=== PATIENT | female | born 1960 | race Caucasian/White ===

== ENCOUNTER 2016-10-27 08:04 | Emergency (ER) | payer OTHER ==
[2016-10-27] MEDS ORDERED: ASPIRIN CHEW 81 MG TABLET PO STA (08:19)
[2016-10-27] MEDS ORDERED: MORPHINE 2 MG/ML SYRINGE IVP STA ×2 (08:19→09:35)
[2016-10-27] MEDS ORDERED: NITROGLYCERIN SL 0.4 MG TABLET SL STA (08:19)
[2016-10-27] MEDS ORDERED: SODIUM CHLORIDE 0.9% 1,000 ML IV ONE (08:19)
[2016-10-27] MEDS ORDERED: ONDANSETRON 4 MG/2 ML VIAL IVP STA (08:20)
[2016-10-27] MEDS ORDERED: ASPIRIN CHEW 81 MG TABLET ONE (08:33)
[2016-10-27] MEDS ORDERED: MORPHINE 2 MG/ML SYRINGE ONE ×2 (08:33→09:40)
[2016-10-27] MEDS ORDERED: ONDANSETRON 4 MG/2 ML VIAL ONE (08:33)
[2016-10-27] MEDS ORDERED: NITROGLYCERIN SL 0.4 MG TABLET SL ONE (08:33)
[2016-10-27] MEDS ORDERED: IOPAMIDOL-300 100 ML VIAL IVP ONE (09:57)
[2016-10-27] MEDS ORDERED: AZITHROMYCIN 250 MG TABLET PO ONE (13:40)
== END 2016-10-27 13:56 | disposition home or self-care (01) ==
DX: I30.9 Acute pericarditis, unspecified (principal); J18.9 Pneumonia, unspecified organism; R00.0 Tachycardia, unspecified; R91.8 Other nonspecific abnormal finding of lung field; N28.89 Other specified disorders of kidney and ureter; I10 Essential (primary) hypertension; M06.9 Rheumatoid arthritis, unspecified; F17.200 Nicotine dependence, unspecified, uncomplicated
CPT/HCPCS: 36415; 71010; 71275; 80053; 83690; 84484; 85025; 85379; 93005; 93010; 93306; 96374; 96375; 96376; 99284; A9270; Q9967

== ENCOUNTER 2017-01-10 04:56 | Emergency (ER) | payer OTHER ==
[2017-01-10] MEDS ORDERED: HYDROmorphone 1 MG/ML SYRINGE IVP STA (05:37)
[2017-01-10] MEDS ORDERED: KETOROLAC 60 MG/2 ML VIAL IVP STA (05:37)
[2017-01-10] MEDS ORDERED: DEXAMETHASONE 10 MG/ML VIAL IVP STA (05:39)
[2017-01-10] MEDS ORDERED: ONDANSETRON 4 MG/2 ML VIAL IVP STA (05:39)
[2017-01-10] MEDS ORDERED: DEXAMETHASONE 10 MG/ML VIAL ONE (05:40)
[2017-01-10] MEDS ORDERED: HYDROmorphone 1 MG/ML SYRINGE ONE (05:40)
[2017-01-10] MEDS ORDERED: KETOROLAC 30 MG/ML VIAL ONE (05:40)
[2017-01-10] MEDS ORDERED: ONDANSETRON 4 MG/2 ML VIAL ONE (05:40)
== END 2017-01-10 07:05 | disposition home or self-care (01) ==
DX: J06.9 Acute upper respiratory infection, unspecified (principal); R07.81 Pleurodynia; M06.9 Rheumatoid arthritis, unspecified; I10 Essential (primary) hypertension; F17.200 Nicotine dependence, unspecified, uncomplicated
CPT/HCPCS: 36415; 71020; 80053; 83690; 84484; 87275; 87276; 93005; 93010; 96374; 96375; 99283; 99284; J1170

== ENCOUNTER 2019-06-26 11:16 | Inpatient (IN) | payer OTHER ==
[2019-06-26] MEDS ORDERED: AMOX/CLAV 875 MG/125 MG TABLET PO STA (11:49)
[2019-06-26] MEDS ORDERED: SULFAMETH/TRIMETH DS 800/160 MG TABLET PO STA (11:49)
--- NOTE | 2019-06-26 11:57 | ED Physician Documentation ---
History of Present Illness - Stated complaint Stated Complaint: SWOLLEN TOE - Chief complaint Chief Complaint: Ext Problem - History obtained from History obtained from: Patient, Family - History of Present Illness Pain level max: 5 Pain level now: 4 - Additonal information Additional information: Left second toe redness and swelling. Ongoing for the past several months. Comes and goes. Worsening over the past few days, purulent material drained from the toe this morning. She is on Remicade for rheumatoid arthritis. Denies any history of diabetes. She spends part of her time here in part of her time outside of [place]. No fevers. No trauma. Review of Systems Ten Systems: 10 systems reviewed and negative Constitutional: denies: Fever, Chills GI: denies: Vomiting, Diarrhea Skin: denies: Rash Musculoskeletal: denies: Neck pain, Back pain Neurologic: denies: Headache PD PAST MEDICAL HISTORY - Past Medical History Cardiovascular: Hypertension, High cholesterol Musculoskeletal: Rheumatoid arthritis - Past Surgical History Past Surgical History: Yes /EARLY YEARS [employer]ER: Breast implants - Present Medications Home Medications: Ambulatory Orders Medication Instructions Recorded Confirmed Atorvastatin [Lipitor] 20 mg ORAL DAILY 10/27/16 06/26/19 Infliximab-Abda [Renflexis] 500 mg IV .Q8W 10/27/16 06/26/19 Meloxicam 7.5 mg PO BID 10/27/16 06/26/19 Ascorbic Acid 500 mg PO DAILY 06/26/19 06/26/19 Calcium Carbonate 500 mg PO DAILY 06/26/19 06/26/19 Cholecalciferol (Vitamin D3) 1,000 unit PO DAILY 06/26/19 06/26/19 [Vitamin D3] Colchicine [Colcrys] 0.6 mg PO BID 06/26/19 06/26/19 Cyanocobalamin (Vitamin B-12) 500 mcg PO DAILY 06/26/19 06/26/19 [Vitamin B-12 (500 mcg sublingual)] Gabapentin [Neurontin] 300 mg PO QPM 06/26/19 06/26/19 Ibuprofen [Motrin] 400 mg PO Q8H PRN 06/26/19 06/26/19 Leflunomide 20 mg PO DAILY 06/26/19 06/26/19 Metoprolol Tartrate 50 mg PO BID 06/26/19 06/26/19 Multivitamin [Theragran] 1 each PO DAILY 06/26/19 06/26/19 Nortriptyline HCl [Pamelor] 50 mg PO QPM 06/26/19 06/26/19 Varenicline Tartrate [Chantix] 1 mg PO BID 06/26/19 06/26/19 predniSONE [Prednisone] 5 - 20 mg PO DAILY PRN 06/26/19 06/26/19 - Allergies Allergies/Adverse Reactions: Allergies Allergy/AdvReac Type Severity Reaction Status Date / Time prils Allergy Unknown Uncoded 06/26/19 11:29 - Social History Does the pt smoke?: Yes Smoking Status: Current every day smoker Does the pt drink ETOH?: Yes Does the pt have substance abuse?: No - Immunizations Immunizations are current?: Yes PD ED PE NORMAL - Vitals Vital signs reviewed: Yes - General General: Alert and oriented X 3, No acute distress - HEENT HEENT: Moist mucous membranes - Neck Neck: Supple, no meningeal sign - Cardiac Cardiac: RRR - Respiratory Respiratory: No respiratory distress, Clear bilaterally - Abdomen Abdomen: Soft, Non tender, Non distended - Derm Derm: Warm and dry - Extremities Extremities: Other (L 2nd toe - Swelling and erythema to the left second toe. Small amount of purulent drainage from the tip of the toe. There is mild swelling and erythema to the dorsum of the foot as well. No gross deformity. Brisk cap refill. Neurovascular intact) - Neuro Neuro: Alert and oriented X 3 - Psych Psych: Normal mood, Normal affect Results - Vitals Vitals: Vital Signs - 24 hr 06/26/19 11:27 Temperature 36.7 C Heart Rate 77 Respiratory 18 Rate Blood Pressure 125/81 H O2 Saturation 96 Oxygen O2 Source Room air - Labs Labs: Microbiology 06/26/19 11:40 Wound Culture - Preliminary Abscess Laboratory Tests 06/26/19 06/26/19 06/26/19 12:00 12:00 12:00 WBC 9.6 RBC 4.75 Hgb 14.2 Hct 44.2 MCV 93.1 MCH 29.9 MCHC 32.1 RDW 13.7 Plt Count 261 MPV 10.0 Neut # (Auto) 5.9 Lymph # (Auto) 2.5 [place] # (Auto) 0.8 Eos # (Auto) 0.3 Baso # (Auto) 0.0 Absolute Nucleated RBC 0.00 Nucleated RBC % 0.0 ESR 27 Sodium 141 Potassium 2.7 L Chloride 96 L Carbon Dioxide 30 Anion Gap 15.0 H BUN 17 Creatinine 1.1 H Estimated GFR (MDRD) 51 L Glucose 101 H Calcium 9.2 Total Bilirubin Direct Bilirubin AST ALT Alkaline Phosphatase C-Reactive Protein 4.9 H Total Protein Albumin Globulin 06/26/19 12:00 WBC RBC Hgb Hct MCV MCH MCHC RDW Plt Count MPV Neut # (Auto) Lymph # (Auto) [place] # (Auto) Eos # (Auto) Baso # (Auto) Absolute Nucleated RBC Nucleated RBC % ESR Sodium Potassium Chloride Carbon Dioxide Anion Gap BUN Creatinine Estimated GFR (MDRD) Glucose Calcium Total Bilirubin 0.4 Direct Bilirubin 0.2 AST 33 ALT 31 Alkaline Phosphatase 73 C-Reactive Protein Total Protein 7.0 Albumin 3.3 Globulin 3.7 - Rads (name of study) L foot xray Radiology: Prelim report reviewed, EMP read contemporaneously, See rad report (Findings consistent with osteomyelitis involving the second toe) PD MEDICAL DECISION MAKING - ED course Complexity details: reviewed results, re-evaluated patient, considered differential, d/w patient, d/w family, d/w warehouse consultant ED course: 58-year-old female with osteomyelitis of the left second toe. Purulent drainage was present from the toe. This was cultured. Placed on antibiotics. Will admit for IV antibiotics and possible amputation. Discussed the case with Dr. Stacy, orthopedics who asked that she be admitted to the hospitalist service. She was admitted to Dr. Slaughter, the hospitalist who graciously accepts in transfer. Potassium was also replaced. This document was made in part using voice recognition software. While efforts are made to proofread this document, sound alike and grammatical errors may occur. Departure - Departure Disposition: [address] [facility] DC/Xfer Clinical Impression: Hypokalemia Osteomyelitis Qualifiers: Osteomyelitis type: unspecified type Osteomyelitis location: foot Laterality: left Qualified Code(s): M86.9 - Osteomyelitis, unspecified Condition: Stable Discharge Date/Time: 06/26/19 15:32
[2019-06-26 12:07] LABS: BASOPHILS % (AUTO) 0.4 %; EOSINOPHILS # (AUTO) 0.3 10^3/uL (0.0-0.7); HGB - HEMOGLOBIN 14.2 g/dL (12.0-16.0); LYMPHOCYTES # (AUTO) 2.5 10^3/uL (1.5-3.5); LYMPHOCYTES % (AUTO) 25.7 %; MEAN CORPUSCULAR HEMOGLOBIN 29.9 pg (27.0-31.0); MEAN CORPUSCULAR HGB CONC 32.1 g/dL (32.0-36.0); MEAN CORPUSCULAR VOLUME 93.1 fL (81.0-99.0); MONOCYTES # (AUTO) 0.8 10^3/uL (0.0-1.0); MONOCYTES % (AUTO) 8.8 %; NEUTROPHILS # (AUTO) 5.9 10^3/uL (1.5-6.6); NEUTROPHILS % (AUTO) 61.8 %; PLT - PLATELET COUNT 261 10^3/uL (130-450); RED BLOOD COUNT 4.75 10^6/uL (4.20-5.40); RED CELL DISTRIBUTION WIDTH 13.7 % (12.0-15.0); WHITE BLOOD COUNT 9.6 x10^3/uL (4.8-10.8)
[2019-06-26 12:24] LABS: CALCIUM 9.2 mg/dL (8.5-10.3); CREATININE 1.1 mg/dL (0.4-1.0); CRP - C-REACTIVE PROTEIN 4.9 mg/dL (0-1.0)
[2019-06-26] MEDS ORDERED: POTASSIUM CHLORIDE 20 MEQ TABLET PO STA (12:26)
--- NOTE | 2019-06-26 12:36 | XRAY Report ---
Reason: L 2nd toe infected for 2 months Procedure Date: 06/26/2019 Accession Number: [id number] / [id number] Procedure: XR - Foot 3 View LT CPT Code: FULL RESULT: EXAM: LEFT FOOT RADIOGRAPHY EXAM DATE: 06/26/2019 12:10 PM. CLINICAL HISTORY: Left 2nd toe infected for 2 months. COMPARISON: None. TECHNIQUE: 3 views. FINDINGS: Bones: There is near total bone lysis involving the second distal phalanx. Some focal bone loss is also seen along the lateral margin of the second middle phalanx. No discrete bone lysis detected of the second proximal phalanx. Severe arthritic changes are indicated at the first metatarsophalangeal articulation, with effacement of the joint space, focal erosions along the margin of the articulation, and subchondral cystic changes. Chronic-appearing diminution of the head of the third metatarsal, without focal bone lysis detected. Evidence of healed fracture of the distal diaphysis of the fifth metatarsal. Joints: Normal. No subluxations. Soft Tissues: Significant soft tissue swelling is seen of the second toe. No subcutaneous radiopaque foreign bodies. IMPRESSION: Findings consistent with osteomyelitis involving the second toe. RADIA
[2019-06-26] MEDS ORDERED: VANCOMYCIN INJ 1 GM in SODIUM CHLORIDE 0.9% 500 ML IV STA (12:47)
[2019-06-26] MEDS ORDERED: PIPERACILLIN/TAZOBACTAM 4.5 GM in SODIUM CHLORIDE 0.9% MINIBAG 100 ML IV STA (12:47)
[2019-06-26] MEDS ORDERED: SODIUM CHLORIDE 0.9% 1,000 ML IV ONE (12:49)
[2019-06-26] MEDS ORDERED: ACETAMINOPHEN 325 MG TABLET PO PRN (12:58)
[2019-06-26 13:26] LABS: ALBUMIN 3.3 g/dL (3.2-5.5); BILIRUBIN,DIRECT 0.2 mg/dL (0.1-0.5); BILIRUBIN,TOTAL 0.4 mg/dL (0.2-1.0)
[2019-06-26] MEDS ORDERED: MORPHINE 2 MG/ML CARPUJECT IVP STA (14:03)
--- NOTE | 2019-06-26 14:05 | XRAY Report ---
Reason: pre-op eval Procedure Date: 06/26/2019 Accession Number: [id number] / [id number] Procedure: XR - Chest 1 View X-Ray CPT Code: 36208 FULL RESULT: EXAM: CHEST RADIOGRAPHY EXAM DATE: 06/26/2019 01:55 PM. CLINICAL HISTORY: Pre-op evaluation. COMPARISON: CHEST 2 VIEW PA/LAT 01/10/2017 5:59 AM. TECHNIQUE: 1 view. FINDINGS: Lungs/Pleura: No focal opacities evident. No pleural effusion. No pneumothorax. Mediastinum: Within exam limitations, the cardiomediastinal contour is normal. Other: Stable moderate rightward thoracic scoliosis. IMPRESSION: No lung consolidations identified. RADIA
[2019-06-26] MEDS ORDERED: LACTATED RINGERS 1,000 ML IV SCH ×2 (16:00→17:54)
[2019-06-26] MEDS ORDERED: fentaNYL 100 MCG/2 ML VIAL IVP ONE (16:39)
[2019-06-26] MEDS ORDERED: PROPOFOL 200 MG/20 ML VIAL IVP ONE (16:39)
[2019-06-26] MEDS ORDERED: MIDAZOLAM 2 MG/2 ML VIAL IVP ONE (16:39)
[2019-06-26] MEDS ORDERED: KETAMINE 500 MG/10 ML VIAL IVP ONE (16:39)
[2019-06-26] MEDS ORDERED: LIDOCAINE-MPF 2% 5 ML VIAL IM ONE (16:39)
[2019-06-26] MEDS: HYDROmorphone 1 MG/ML CARPUJECT IVP PRN (16:40)
[2019-06-26] MEDS: SODIUM CHLORIDE FLUSH 0.9% 10 ML SYRINGE IVP SCH (16:40)
[2019-06-26] MEDS ORDERED: PROCHLORPERAZINE 10 MG/2 ML VIAL IVP PRN (17:58)
[2019-06-26] MEDS: PIPERACILLIN/TAZOBACTAM 3.375 GM in SODIUM CHLORIDE 0.9% MINIBAG 100 ML IV SCH (18:55)
--- NOTE | 2019-06-26 19:57 | HISTORY & PHYSICAL EXAMINATION ---
DATE OF SERVICE: 06/26/2019 Physician: Tatianna Shen MD HISTORY OF PRESENT ILLNESS: This is a 58-year-old white female with a history of smoking, trying to quit and using Chantix now, history of rheumatoid arthritis, for which she takes Remicade and other immunosuppressants and occasionally takes Prednisone for a flare-up, the last of which was about one month ago. The patient developed swelling of her right second toe after wearing a certain shoe, which got better but then got worse, and she started soaking it in Epsom salt soaks. This morning, it opened up and started to drain purulent material, and she came to the emergency room. Workup in the ER shows that she has osteo by imaging, and she is being admitted. PAST MEDICAL HISTORY 1. Rheumatoid arthritis. 2. Smoker, who is trying to quit. 3. HTN ALLERGIES: ENALAPRIL MEDICATIONS. MEDICATIONS 1. Vitamin B12. 2. Vitamin D3. 3. Multivitamin. 4. Vitamin C. 5. Nortriptyline 50 mg every night. 6. Neurontin 300 mg every night. 7. Prednisone 5 -20 mg daily when she has a flare-up of her RA. 8. Chantix 1 mg b.i.d. 9. Meloxicam 7.5 mg b.i.d. 10. Renflexis 500 mg every 2 months. 11. Lipitor 20 mg daily. 12. Motrin 400 mg p.r.n. pain. 13. Metoprolol tartrate 50 mg b.i.d. 14. Leflunomide 20 mg daily. FAMILY HISTORY: No inherited diseases. SOCIAL HISTORY: Smoker, who is trying to quit; alcohol use and drug use are negative. REVIEW OF SYSTEMS: She has had no fever. She has never had a serious infection on her immunosuppressants in the past. A comprehensive review of systems was performed and the pertinent positives are listed; the rest are negative. PHYSICAL EXAMINATION GENERAL: Middle-aged white female. She has a hoarse voice. VITAL SIGNS: Blood pressure 125/80, heart rate 75 in sinus rhythm, afebrile, room air saturation 96%. HEENT: Reveals tanned, leathery skin, hoarse voice. Moist oral mucosa. Good dentition. NECK: Without JVD or carotid bruits. CHEST: Clear. HEART: Normal. ABDOMEN: Soft. EXTREMITIES: The right toes are bandaged. She has no clubbing, cyanosis or edema. NEURO: Grossly intact. LABORATORY DATA: Sodium 141, potassium 2.7, BUN 17, creatinine 1.1, anion gap mildly elevated at 15. No lactic acid was done. Normal liver tests. Elevated CRP of 4.9. INR normal at 0.9. White blood count 9.6 with no left shift, hemoglobin 14.2, platelet count 261. The wound culture was sent from a swab done in the ER just a few hours ago, and it is already growing moderate gram-positive cocci in clusters and pairs. CHEST X-RAY: No active disease. EKG: Normal sinus rhythm, left atrial enlargement, otherwise within normal limits. Foot x-ray: read as having significant soft tissue swelling of the second toe and severe arthritic changes and near total bone lysis involving the second distal phalanx consistent with osteomyelitis. IMPRESSION/DIAGNOSES 1. Osteomyelitis. 2. Toe cellulitis with wound that has now opened and draining pus. 3. Hypokalemia. 4. Immunocompromised state. 5. Rheumatoid arthritis. 6. Smoker, who is now quitting. PLAN 1. Admit the patient to med/surg bed on telemetry because of the low potassium. 2. Continue with empiric treatment that was started in the ER using vancomycin and Zosyn and await the culture results and tailor the antibiotics to that. If she spikes a fever, obtain blood cultures. 3. Orthopedic consult for debridement of the osteo, and the orthopedic surgeon has indicated he wants 1-3 days of IV antibiotics before undertaking surgery. Recommend checking a lactic acid level. 4. Begin gentle IV hydration and replace her potassium. 5. Cardiac risk index was done for pre-op risk assessment, and she has a low risk with a score of 0, giving her 0.4% chance of perioperative major cardiac event. This was discussed with the patient. 6. Continue her Chantix and BP meds. DEEP VENOUS THROMBOSIS PROPHYLAXIS: SCDs. CODE STATUS: FULL CODE. ATTESTATION: The patient is expected to be discharged or transferred to another facility within 96 hours: Yes. TD: 06/26/2019 19:00 LATHA
--- NOTE | 2019-06-26 20:22 | CONSULTATION NOTE ---
DATE OF SERVICE: 06/26/2019 Physician: Mal Stacy MD ORTHOPEDIC EMERGENCY ROOM CONSULT REFERRING PHYSICIAN: Dr. Sandeep Duong of the ED Department. CHIEF COMPLAINT: "My left second toe is sore." HISTORY OF PRESENT ILLNESS: Maya Acuna is a 58-year-old female with a history of rheumat oid arthritis, on 3-month infusions with immunosuppressive drugs in [place], who is currently visi ting relatives here on [facility]. It is anticipated that she will relocate to [facility] in the future. Her next scheduled infusion is in late June. Patient relates to us that over the last several months (2 months), she has noted intermittent redness and swelling to her left second to e. She denies any preceding trauma to the toe and has had intermittent pain. No associated fever. Several days ago, she noted some spontaneous drainage from the tip of her toe, which was purulent in nature. She has also noted increasing pain in her toe. She had not sought medical attention prior t o today with regard to the toe. EXAMINATION: Patient's left foot was examined. She has some mild deformity of her forefoot, likely due to her rheumatoid arthritis. Her left second toe is markedly swollen and erythematous today. It is somewhat tender on palpation. Patient has a small puncture site at the tip of her second toe, wh ere apparently some purulent drainage was expressible in the emergency room. Minimal drainage noted here. (A sample of the drainage from her toe apparently was collected in the emergency room and was sent to Microbiology for cultures and sensitivities.) Patient has intact sensation to light touch of her toe. No evidence of any lymphangitis noted. IMAGING: X-rays of the left foot show essentially a complete destructive process involving principal ly the distal phalanx of the second toe. The phalanx is essentially obliterated. She also has some lytic changes seen in the distal end of the middle phalanx of the second toe as well. White count was 9,600 with a sedimentation rate of 27. ASSESSMENT 1. Osteomyelitis of the second toe of the left foot - patient's history is consistent with this, and radiographically, she has complete lytic destruction of the distal phalanx and a portion of the dist al end of the middle phalanx of her left second toe. Patient is a candidate for infections in lieu o f her pharmaceutical IV infusion medications in [place] for treatment of her rheumatoid arthritis. 2. Rheumatoid arthritis. PLAN: Patient has a rather inflamed left second toe. I have recommended that she be started on IV b road-spectrum antibiotics and allow the cellulitic component of her left second toe to improve over t he next 36 hours. We will plan then on performing a partial left second toe amputation, Saturday tita harrell at 8:00, when some of the cellulitis has resolved. Patient's diagnosis and surgical options were explained to her today. This would include either retu rning back to [place] and having her local orthopedist do her surgery and follow her postoperative ly versus having us proceed and do the same here. She opts to have us take care of her surgical ampu tation of her toe. The risks and benefits of surgery were again explained. These would include anes thesia risks, prolonged infection, delayed wound healing, further surgeries. She appears to understa nd these risks and wished to proceed as noted. Her leg was marked. Consent signed. TD: 06/26/2019 18:19
[2019-06-26] MEDS: NORTRIPTYLINE 25 MG CAPSULE PO SCH (20:53)
[2019-06-26] MEDS: METOPROLOL TARTRATE 50 MG TABLET PO SCH (20:53)
[2019-06-26] MEDS: FAMOTIDINE 20 MG TABLET PO SCH (20:54)
[2019-06-26] MEDS: HYDROcod/ACETAM 5/325 MG TABLET PO PRN (20:54)
[2019-06-26] MEDS: POTASSIUM CHLOR 10 MEQ/100 ML 10 MEQ/100 ML BAG IV SCH ×2 (20:55→23:05)
[2019-06-26] MEDS: GABAPENTIN 300 MG CAPSULE PO SCH (20:55)
[2019-06-26] MEDS ORDERED: POTASSIUM CHLORIDE 20 MEQ TABLET PO ONE (21:45)
[2019-06-27] MEDS: HYDROcod/ACETAM 5/325 MG TABLET PO PRN ×5 (00:30→20:24)
[2019-06-27] MEDS: PIPERACILLIN/TAZOBACTAM 3.375 GM in SODIUM CHLORIDE 0.9% MINIBAG 100 ML IV SCH ×4 (00:59→17:50)
[2019-06-27] MEDS: SODIUM CHLORIDE FLUSH 0.9% 10 ML SYRINGE IVP SCH ×3 (01:01→20:24)
[2019-06-27] MEDS: VANCOMYCIN INJ 1 GM in SODIUM CHLORIDE 0.9% 250 ML IV SCH ×2 (02:48→12:59)
[2019-06-27 05:47] LABS: BASOPHILS # (AUTO) 0.1 10^3/uL (0.0-0.1); BASOPHILS % (AUTO) 0.8 %; EOSINOPHILS # (AUTO) 0.4 10^3/uL (0.0-0.7); EOSINOPHILS % (AUTO) 5.5 %; HGB - HEMOGLOBIN 11.8 g/dL (12.0-16.0); LYMPHOCYTES # (AUTO) 2.8 10^3/uL (1.5-3.5); LYMPHOCYTES % (AUTO) 41.9 %; MEAN CORPUSCULAR HEMOGLOBIN 30.2 pg (27.0-31.0); MEAN CORPUSCULAR HGB CONC 31.9 g/dL (32.0-36.0); MEAN CORPUSCULAR VOLUME 94.6 fL (81.0-99.0); MEAN PLATELET VOLUME 9.8 fL (7.9-10.8); MONOCYTES # (AUTO) 0.6 10^3/uL (0.0-1.0); MONOCYTES % (AUTO) 8.5 %; NEUTROPHILS # (AUTO) 2.8 10^3/uL (1.5-6.6); NEUTROPHILS % (AUTO) 43.1 %; PLT - PLATELET COUNT 229 10^3/uL (130-450); RED BLOOD COUNT 3.91 10^6/uL (4.20-5.40); RED CELL DISTRIBUTION WIDTH 13.7 % (12.0-15.0); WHITE BLOOD COUNT 6.6 x10^3/uL (4.8-10.8)
[2019-06-27 05:55] LABS: CALCIUM 8.7 mg/dL (8.5-10.3); CREATININE 1.1 mg/dL (0.4-1.0)
[2019-06-27] MEDS ORDERED: POTASSIUM CHLORIDE 20 MEQ TABLET PO ONE (06:17)
[2019-06-27] MEDS ORDERED: POTASSIUM CHLORIDE INJ 40 MEQ in SODIUM CHLORIDE 0.9% 480 ML IV ONE (06:17)
[2019-06-27] MEDS: POLYETHYLENE GLYCOL 3350 17 GM PACKET PO SCH (08:28)
[2019-06-27] MEDS: CHOLECALCIFEROL 1,000 UNIT TABLET PO SCH (08:29)
[2019-06-27] MEDS: CYANOCOBALAMIN 500 MCG TABLET PO SCH (08:30)
[2019-06-27] MEDS: ASCORBIC ACID CHEW 500 MG TABLET PO SCH (08:30)
[2019-06-27] MEDS: CALCIUM CARB (OYSTER SHELL) 500 MG TABLET PO SCH (08:30)
[2019-06-27] MEDS: MULTIVITAMIN TABLET PO SCH (08:30)
[2019-06-27] MEDS: METOPROLOL TARTRATE 50 MG TABLET PO SCH ×2 (08:30→21:14)
--- NOTE | 2019-06-27 08:48 | PROVIDER PROGRESS NOTE ---
Assessment/Plan - Problem List (1) Osteomyelitis Qualifiers: Osteomyelitis type: unspecified type Osteomyelitis location: foot Laterality: left Qualified Code(s): M86.9 - Osteomyelitis, unspecified Assessment/Plan: She started antibiotics yesterday afternoon. She is still needing iv narcotics for pain control. Dr Stacy saw her today and is still planning orthopedic surgery tomorrow a.m. Duration of treatment will depend on amount of bone and soft tissue removed at surgery tomorrow. (2) Bone destruction Assessment/Plan: The XRay showed bone lysis. Orthopedic surgery is scheduled for tomorrow. Duration of treatment will depend on amount of bone and soft tissue removed at surgery tomorrow. (3) Cellulitis and abscess of toe Qualifiers: Laterality: left Qualified Code(s): L03.032 - Cellulitis of left toe; L02.612 - Cutaneous abscess of left foot Assessment/Plan: Continue iv antibiotics. Awaiting wound culture results; it is growing a Staph species, not yet identified. Duration of treatment will depend on amount of bone and soft tissue removed at surgery tomorrow. (4) Immunocompromised patient Assessment/Plan: She has been on immunosuppressants for her Rheumatoid Arthritis, which predisposed her to infections. (5) Rheumatoid arthritis Assessment/Plan: No current flare ups of RA of her joints, to need Prednisone. She reports 3 prior episodes of pericarditis which needed treatment with Colchicine, which she is now on continuously. She was told to use it bid but that caused diarrhea so she takes it once a day. I will order it daily. (6) Hypokalemia Assessment/Plan: It is unclear why she has such severe hypokalemia; was not on K-losing diuretics, or Flurinef. Possibly the frequent Prednisone was acting as a mineralocorticoid for her. Or maybe she has Hyperaldosteronism to give her HTN and chronic Hypokalemia. Replaceing low serum K of 2.7 with iv K 40 mEq today and will start daily oral Potassium 20 mEq daily. Follow serum K bid til stabilized. Will order labs to check plasma renin activity and plasma aldosterone concentration. If these are abnormal, she will need a CT of the sdrenals to look for an adrenal tumor or bilateral adrenal hyperplasia. She remembered she was on HCTZ daily for BP, which was not written on her med list, so it was not reconciled. She took her own dose from her purse today. I told her not to take it any longer, since she will need hydration, not a diuretic and it is adding to low Potassium. (7) HTN (hypertension) Assessment/Plan: She was on HCTZ and Metoprolol for BP control. Will not use the HCTZ, since it is adding to secerly low serum Potassium. Continue her home dose of Metoprolol Tartrate. She may need Amlodipine or Norvasc started. - Current Meds Current Meds: Current Medications Generic Name Dose Route Start Last Admin Trade Name Freq PRN Reason Stop Dose Admin Hydrocodone Bitart/Acetaminophen 1 tab 06/26/19 12:58 06/27/19 06:58 [place] 5/325 PO 1 tab Q4HR PRN Administration Pain 5 to 7 Ascorbic Acid 500 mg 06/27/19 09:00 06/27/19 08:30 Vitamin C PO 500 mg DAILY ONUR Administration Calcium Carbonate/Glycine 500 mg 06/27/19 09:00 06/27/19 08:30 [place]-500 PO 500 mg DAILY ONUR Administration Cholecalciferol 1,000 unit 06/27/19 09:00 06/27/19 08:29 Vitamin D3 PO 1,000 unit DAILY ONUR Administration Cyanocobalamin 500 mcg 06/27/19 09:00 06/27/19 08:30 Vitamin B-12 PO 500 mcg DAILY ONUR Administration Famotidine 20 mg 06/26/19 21:00 06/26/19 20:54 Pepcid PO 20 mg BID ONUR Administration Gabapentin 300 mg 06/26/19 21:00 06/26/19 20:55 Neurontin PO 300 mg QPM ONUR Administration Hydromorphone HCl 1 mg 06/26/19 12:58 06/26/19 16:40 Dilaudid Inj Carp IVP 1 mg Q2HR PRN Administration Pain 8 to 10 Vancomycin HCl 1 gm/ Sodium 250 mls @ 167 mls/hr 06/27/19 02:00 06/27/19 07:54 Chloride IV Infused Q12H ONUR Infusion Piperacillin Sod/Tazobactam 100 mls @ 200 mls/hr 06/26/19 18:00 06/27/19 07:53 Sod 3.375 gm/ Sodium Chloride IV Infused Q6H ONUR Infusion Lactated Ringer's 1,000 mls @ 0 mls/hr 06/26/19 17:54 06/26/19 18:56 Lr IV 30 mls/hr .Q0M ONUR Administration TKO Potassium Chloride 40 meq/ 500 mls @ 125 mls/hr 06/27/19 06:17 06/27/19 08:32 Sodium Chloride IV 06/27/19 10:16 125 mls/hr ONCE ONE Administration Metoprolol Tartrate 50 mg 06/26/19 21:00 06/27/19 08:30 Lopressor PO 50 mg BID ONUR Administration Multivitamins 1 tab 06/27/19 09:00 06/27/19 08:30 Theragran PO 1 tab DAILY ONUR Administration Nortriptyline HCl 50 mg 06/26/19 21:00 06/26/19 20:53 Pamelor PO 50 mg QPM ONUR Administration Polyethylene Glycol 17 gm 06/27/19 09:00 06/27/19 08:28 Miralax PO 17 gm DAILY ONUR Administration Sodium Chloride 10 ml 06/26/19 17:00 06/27/19 01:01 Normal Saline Flush 0.9% IVP 10 ml 0100,0900,1700 ONUR Administration - Lab Result Fish Bone Diagrams: 06/27/19 05:38 06/27/19 12:05 - Additional Planning My Orders: My Active Orders 06/26/19 12:58 Activity Orders [RC] Q2HR IO [RC] IOSHIFT Initiate Bowel Care Protocol [RC] .protocol Initiate Line Care Protocol [RC] [facility] Initiate Personal Care Protoco [RC] .protocol Oxygen Therapy [RC] Routine Vital Signs [RC] Q4HR Acetaminophen [Tylenol] 650 mg PO Q4HR PRN HYDROcod/ACETAM 5/325 [[place] 5/325] 1 tab PO Q4HR PRN HYDROmorphone INJ CARP [Dilaudid Inj Carp] 1 mg IVP Q2HR PRN Sodium Chloride Flush 0.9% [Normal Saline Flush 0.9%] 10 ml IVP PRN PRN Code Status [OTHERS] Routine Condition of Patient [OTHERS] Routine DVT Prophylaxis [OTHERS] Routine 06/26/19 13:00 SCDs [RC] QSHIFT 06/26/19 13:01 Initiate Line Care Protocol [RC] QSHIFT Orthopedics Consult [CONS] Routine 06/26/19 17:00 Sodium Chloride Flush 0.9% [Normal Saline Flush 0.9%] 10 ml IVP 0100,0900,1700 06/26/19 17:54 Lactated Ringers [Lr] 1,000 ml IV TKO 06/26/19 17:58 Prochlorperazine Inj [Compazine Inj] 10 mg IVP Q4HR PRN 06/26/19 18:00 Piperacillin/Tazobactam [Zosyn] 3.375 gm Sodium Chloride 0.9% Minibag [Normal Saline 0.9% Minibag] 100 ml IV Q6H 06/26/19 21:00 Famotidine [Pepcid] 20 mg PO BID Gabapentin [Neurontin] 300 mg PO QPM Metoprolol Tartrate [Lopressor] 50 mg PO BID Nortriptyline [Pamelor] 50 mg PO QPM 06/26/19 Dinner Regular Diet [DIET] 06/27/19 02:00 Vancomycin Inj [Vancomycin] 1 gm Sodium Chloride 0.9% [Normal Saline 0.9%] 250 ml IV Q12H 06/27/19 09:00 Ascorbic Acid Chew [Vitamin C] 500 mg PO DAILY Calcium Carb (Oyster Shell) [[place]-500] 500 mg PO DAILY Cholecalciferol [Vitamin D3] 1,000 unit PO DAILY Cyanocobalamin [Vitamin B-12] 500 mcg PO DAILY Multivitamin [Theragran] 1 tab PO DAILY Polyethylene Glycol 3350 [Miralax] 17 gm PO DAILY 06/27/19 21:00 Atorvastatin [Lipitor] 20 mg PO QPM 06/28/19 05:00 BMP - BASIC METABOLIC PANEL [CHEM] DAILYLAB CBC - COMP BLD CT W/AUTO DIFF [HEME] DAILYLAB 06/28/19 08:00 Potassium Chloride [K-Dur] 20 meq PO DAILYWM 06/28/19 13:30 VANCOMYCIN TROUGH [CHEM] Timed 06/29/19 05:00 BMP - BASIC METABOLIC PANEL [CHEM] DAILYLAB CBC - COMP BLD CT W/AUTO DIFF [HEME] DAILYLAB Subjective - Subjective Patient Reports: Feeling Better, Pain, Other (Still has pain in foot and toe) Objective Vital Signs: Vital Signs - 24 hr 06/26/19 06/26/19 06/26/19 11:27 13:05 15:58 Temperature 36.7 C 36.6 C Heart Rate 77 70 Heart Rate [ 70 Monitoring electrodes] Respiratory 18 18 14 Rate Blood Pressure 125/81 H 147/80 H Blood Pressure 126/81 H [Right Brachial artery] O2 Saturation 96 99 93 06/26/19 06/26/19 06/26/19 18:06 20:02 20:53 Temperature 36.6 C 36.6 C Heart Rate 82 Heart Rate [ 73 Monitoring electrodes] Respiratory 14 18 Rate Blood Pressure 147/80 H Blood Pressure 115/67 [Right Brachial artery] O2 Saturation 96 94 06/26/19 06/27/19 06/27/19 23:32 05:00 08:30 Temperature 36.6 C 36.5 C Heart Rate Heart Rate [ 72 73 Monitoring electrodes] Respiratory 16 20 Rate Blood Pressure 111/60 Blood Pressure 111/65 103/70 [Right Brachial artery] O2 Saturation 100 93 06/27/19 08:35 Temperature 3.5 C L Heart Rate Heart Rate [ 75 Monitoring electrodes] Respiratory 18 Rate Blood Pressure Blood Pressure 111/60 [Right Brachial artery] O2 Saturation 93 Oxygen O2 Source Room air I&O (Last 24 Hrs): Intake and Output Totals x24h 06/25/19 06/26/19 06/27/19 23:59 23:59 23:59 Intake Total 1047 450 Balance 1047 450 General: Alert, Oriented x3 HEENT: Other (Hoarseness) Neck: Supple, No JVD Neuro: Non Focal Cardiovascular: Regular rate Respiratory: No respiratory distress Abdomen: Soft Extremities: No edema, Other (Feet in socks and not removed) - Results Results: Laboratory Results WBC 6.6 x10^3/uL (4.8-10.8) 06/27/19 05:38 RBC 3.91 10^6/uL (4.20-5.40) L 06/27/19 05:38 Hgb 11.8 g/dL (12.0-16.0) L 06/27/19 05:38 Hct 37.0 % (37.0-47.0) 06/27/19 05:38 MCV 94.6 fL (81.0-99.0) 06/27/19 05:38 MCH 30.2 pg (27.0-31.0) 06/27/19 05:38 MCHC 31.9 g/dL (32.0-36.0) L 06/27/19 05:38 RDW 13.7 % (12.0-15.0) 06/27/19 05:38 Plt Count 229 10^3/uL (130-450) 06/27/19 05:38 MPV 9.8 fL (7.9-10.8) 06/27/19 05:38 Neut # (Auto) 2.8 10^3/uL (1.5-6.6) 06/27/19 05:38 Lymph # (Auto) 2.8 10^3/uL (1.5-3.5) 06/27/19 05:38 [place] # (Auto) 0.6 10^3/uL (0.0-1.0) 06/27/19 05:38 Eos # (Auto) 0.4 10^3/uL (0.0-0.7) 06/27/19 05:38 Baso # (Auto) 0.1 10^3/uL (0.0-0.1) 06/27/19 05:38 Absolute Nucleated RBC 0.00 x10^3/uL 06/27/19 05:38 Nucleated RBC % 0.0 /100WBC 06/27/19 05:38 ESR 27 mm/Hr (0-30) 06/26/19 12:00 Whole Blood INR 0.9 (0.8-1.2) 06/26/19 13:21 Sodium 140 mmol/L (135-145) 06/27/19 05:38 Potassium 2.7 mmol/L (3.5-5.0) L 06/27/19 05:38 Chloride 103 mmol/L (101-111) 06/27/19 05:38 Carbon Dioxide 29 mmol/L (21-32) 06/27/19 05:38 Anion Gap 8.0 (6-13) 06/27/19 05:38 BUN 16 mg/dL (6-20) 06/27/19 05:38 Creatinine 1.1 mg/dL (0.4-1.0) H 06/27/19 05:38 Estimated GFR (MDRD) 51 (>89) L 06/27/19 05:38 Glucose 153 mg/dL (70-100) H 06/27/19 05:38 Lactic Acid 1.5 mmol/L (0.5-2.2) 06/27/19 05:38 Calcium 8.7 mg/dL (8.5-10.3) 06/27/19 05:38 Total Bilirubin 0.4 mg/dL (0.2-1.0) 06/26/19 12:00 Direct Bilirubin 0.2 mg/dL (0.1-0.5) 06/26/19 12:00 AST 33 IU/L (10-42) 06/26/19 12:00 ALT 31 IU/L (10-60) 06/26/19 12:00 Alkaline Phosphatase 73 IU/L (42-121) 06/26/19 12:00 C-Reactive Protein 4.9 mg/dL (0-1.0) H 06/26/19 12:00 Total Protein 7.0 g/dL (6.7-8.2) 06/26/19 12:00 Albumin 3.3 g/dL (3.2-5.5) 06/26/19 12:00 Globulin 3.7 g/dL (2.1-4.2) 06/26/19 12:00
[2019-06-27] MEDS: MELOXICAM 7.5 MG TABLET PO SCH ×2 (10:25→21:14)
--- NOTE | 2019-06-27 11:10 | PROVIDER PROGRESS NOTE ---
Subjective - Prog Note Date Prog Note Date: 06/27/19 Prog Note Time: 11:08 - Subjective Pt reports feeling: Improved Objective - Vital Signs/Intake & Output Vital Signs: Vital Signs x48h Temp Pulse Resp BP BP Pulse Ox 06/27/19 08:35 3.5 C L 75 18 111/60 93 06/27/19 08:30 111/60 06/27/19 05:00 36.5 C 73 20 103/70 93 Intake & Output: Intake & Output 06/24/19 06/25/19 06/26/19 06/27/19 23:59 23:59 23:59 23:59 Intake Total 1047 650 Balance 1047 650 - Lab Results Fish Bones: 06/27/19 05:38 06/27/19 05:38 Other Labs: Lab Results x24hrs 06/27/19 06/27/19 06/27/19 Range/Units 05:38 05:38 05:38 WBC 6.6 (4.8-10.8) x10^3/uL RBC 3.91 L (4.20-5.40) 10^6/uL Hgb 11.8 L (12.0-16.0) g/dL Hct 37.0 (37.0-47.0) % MCV 94.6 (81.0-99.0) fL MCH 30.2 (27.0-31.0) pg MCHC 31.9 L (32.0-36.0) g/dL RDW 13.7 (12.0-15.0) % Plt Count 229 (130-450) 10^3/uL MPV 9.8 (7.9-10.8) fL Neut # (Auto) 2.8 (1.5-6.6) 10^3/uL Lymph # (Auto) 2.8 (1.5-3.5) 10^3/uL [place] # (Auto) 0.6 (0.0-1.0) 10^3/uL Eos # (Auto) 0.4 (0.0-0.7) 10^3/uL Baso # (Auto) 0.1 (0.0-0.1) 10^3/uL Absolute Nucleated RBC 0.00 x10^3/uL Nucleated RBC % 0.0 /100WBC ESR (0-30) mm/Hr Whole Blood INR (0.8-1.2) Sodium 140 (135-145) mmol/L Potassium 2.7 L (3.5-5.0) mmol/L Chloride 103 (101-111) mmol/L Carbon Dioxide 29 (21-32) mmol/L Anion Gap 8.0 (6-13) BUN 16 (6-20) mg/dL Creatinine 1.1 H (0.4-1.0) mg/dL Estimated GFR (MDRD) 51 L (>89) Glucose 153 H (70-100) mg/dL Lactic Acid 1.5 (0.5-2.2) mmol/L Calcium 8.7 (8.5-10.3) mg/dL Total Bilirubin (0.2-1.0) mg/dL Direct Bilirubin (0.1-0.5) mg/dL AST (10-42) IU/L ALT (10-60) IU/L Alkaline Phosphatase (42-121) IU/L C-Reactive Protein (0-1.0) mg/dL Total Protein (6.7-8.2) g/dL Albumin (3.2-5.5) g/dL Globulin (2.1-4.2) g/dL 06/26/19 06/26/19 06/26/19 Range/Units 19:13 15:01 13:21 WBC (4.8-10.8) x10^3/uL RBC (4.20-5.40) 10^6/uL Hgb (12.0-16.0) g/dL Hct (37.0-47.0) % MCV (81.0-99.0) fL MCH (27.0-31.0) pg MCHC (32.0-36.0) g/dL RDW (12.0-15.0) % Plt Count (130-450) 10^3/uL MPV (7.9-10.8) fL Neut # (Auto) (1.5-6.6) 10^3/uL Lymph # (Auto) (1.5-3.5) 10^3/uL [place] # (Auto) (0.0-1.0) 10^3/uL Eos # (Auto) (0.0-0.7) 10^3/uL Baso # (Auto) (0.0-0.1) 10^3/uL Absolute Nucleated RBC x10^3/uL Nucleated RBC % /100WBC ESR (0-30) mm/Hr Whole Blood INR 0.9 (0.8-1.2) Sodium (135-145) mmol/L Potassium 3.4 L (3.5-5.0) mmol/L Chloride (101-111) mmol/L Carbon Dioxide (21-32) mmol/L Anion Gap (6-13) BUN (6-20) mg/dL Creatinine (0.4-1.0) mg/dL Estimated GFR (MDRD) (>89) Glucose (70-100) mg/dL Lactic Acid 1.0 (0.5-2.2) mmol/L Calcium (8.5-10.3) mg/dL Total Bilirubin (0.2-1.0) mg/dL Direct Bilirubin (0.1-0.5) mg/dL AST (10-42) IU/L ALT (10-60) IU/L Alkaline Phosphatase (42-121) IU/L C-Reactive Protein (0-1.0) mg/dL Total Protein (6.7-8.2) g/dL Albumin (3.2-5.5) g/dL Globulin (2.1-4.2) g/dL 06/26/19 06/26/19 06/26/19 Range/Units 12:00 12:00 12:00 WBC (4.8-10.8) x10^3/uL RBC (4.20-5.40) 10^6/uL Hgb (12.0-16.0) g/dL Hct (37.0-47.0) % MCV (81.0-99.0) fL MCH (27.0-31.0) pg MCHC (32.0-36.0) g/dL RDW (12.0-15.0) % Plt Count (130-450) 10^3/uL MPV (7.9-10.8) fL Neut # (Auto) (1.5-6.6) 10^3/uL Lymph # (Auto) (1.5-3.5) 10^3/uL [place] # (Auto) (0.0-1.0) 10^3/uL Eos # (Auto) (0.0-0.7) 10^3/uL Baso # (Auto) (0.0-0.1) 10^3/uL Absolute Nucleated RBC x10^3/uL Nucleated RBC % /100WBC ESR 27 (0-30) mm/Hr Whole Blood INR (0.8-1.2) Sodium 141 (135-145) mmol/L Potassium 2.7 L (3.5-5.0) mmol/L Chloride 96 L (101-111) mmol/L Carbon Dioxide 30 (21-32) mmol/L Anion Gap 15.0 H (6-13) BUN 17 (6-20) mg/dL Creatinine 1.1 H (0.4-1.0) mg/dL Estimated GFR (MDRD) 51 L (>89) Glucose 101 H (70-100) mg/dL Lactic Acid (0.5-2.2) mmol/L Calcium 9.2 (8.5-10.3) mg/dL Total Bilirubin 0.4 (0.2-1.0) mg/dL Direct Bilirubin 0.2 (0.1-0.5) mg/dL AST 33 (10-42) IU/L ALT 31 (10-60) IU/L Alkaline Phosphatase 73 (42-121) IU/L C-Reactive Protein 4.9 H (0-1.0) mg/dL Total Protein 7.0 (6.7-8.2) g/dL Albumin 3.3 (3.2-5.5) g/dL Globulin 3.7 (2.1-4.2) g/dL 06/26/19 Range/Units 12:00 WBC 9.6 (4.8-10.8) x10^3/uL RBC 4.75 (4.20-5.40) 10^6/uL Hgb 14.2 (12.0-16.0) g/dL Hct 44.2 (37.0-47.0) % MCV 93.1 (81.0-99.0) fL MCH 29.9 (27.0-31.0) pg MCHC 32.1 (32.0-36.0) g/dL RDW 13.7 (12.0-15.0) % Plt Count 261 (130-450) 10^3/uL MPV 10.0 (7.9-10.8) fL Neut # (Auto) 5.9 (1.5-6.6) 10^3/uL Lymph # (Auto) 2.5 (1.5-3.5) 10^3/uL [place] # (Auto) 0.8 (0.0-1.0) 10^3/uL Eos # (Auto) 0.3 (0.0-0.7) 10^3/uL Baso # (Auto) 0.0 (0.0-0.1) 10^3/uL Absolute Nucleated RBC 0.00 x10^3/uL Nucleated RBC % 0.0 /100WBC ESR (0-30) mm/Hr Whole Blood INR (0.8-1.2) Sodium (135-145) mmol/L Potassium (3.5-5.0) mmol/L Chloride (101-111) mmol/L Carbon Dioxide (21-32) mmol/L Anion Gap (6-13) BUN (6-20) mg/dL Creatinine (0.4-1.0) mg/dL Estimated GFR (MDRD) (>89) Glucose (70-100) mg/dL Lactic Acid (0.5-2.2) mmol/L Calcium (8.5-10.3) mg/dL Total Bilirubin (0.2-1.0) mg/dL Direct Bilirubin (0.1-0.5) mg/dL AST (10-42) IU/L ALT (10-60) IU/L Alkaline Phosphatase (42-121) IU/L C-Reactive Protein (0-1.0) mg/dL Total Protein (6.7-8.2) g/dL Albumin (3.2-5.5) g/dL Globulin (2.1-4.2) g/dL - Other Results/Comments Other Results/Comments: EXAM: Left second toe: Less swollen and red. N/V the same. Assessment/Plan - Problem List (1) Osteomyelitis Impression: Cellulitis component appears to be better clinically PLAN: Will proceed as planned with partial left second toe amputation in AM. Qualifiers: Osteomyelitis type: unspecified type Osteomyelitis location: foot Laterality: left Qualified Code(s): M86.9 - Osteomyelitis, unspecified
[2019-06-27 12:20] LABS: CALCIUM 8.9 mg/dL (8.5-10.3); CREATININE 1.2 mg/dL (0.4-1.0)
[2019-06-27] MEDS: LACTATED RINGERS 1,000 ML IV SCH (20:24)
[2019-06-27] MEDS ORDERED: COLCHICINE 0.6 MG TABLET PO SCH (21:00)
[2019-06-27] MEDS: ATORVASTATIN 10 MG TABLET PO SCH (21:13)
[2019-06-27] MEDS: NORTRIPTYLINE 25 MG CAPSULE PO SCH (21:13)
[2019-06-27] MEDS: GABAPENTIN 300 MG CAPSULE PO SCH (21:13)
[2019-06-27] MEDS: FAMOTIDINE 20 MG TABLET PO SCH (21:14)
[2019-06-27] MEDS: VARENICLINE 1 MG PO SCH (21:16)
[2019-06-28] MEDS: HYDROcod/ACETAM 5/325 MG TABLET PO PRN ×6 (00:29→23:45)
[2019-06-28] MEDS: PIPERACILLIN/TAZOBACTAM 3.375 GM in SODIUM CHLORIDE 0.9% MINIBAG 100 ML IV SCH ×3 (00:31→12:29)
[2019-06-28] MEDS: SODIUM CHLORIDE FLUSH 0.9% 10 ML SYRINGE IVP SCH ×4 (02:15→23:46)
[2019-06-28] MEDS: VANCOMYCIN INJ 1 GM in SODIUM CHLORIDE 0.9% 250 ML IV SCH (02:17)
[2019-06-28 05:54] LABS: BASOPHILS # (AUTO) 0.1 10^3/uL (0.0-0.1); BASOPHILS % (AUTO) 0.8 %; EOSINOPHILS # (AUTO) 0.3 10^3/uL (0.0-0.7); EOSINOPHILS % (AUTO) 4.7 %; HGB - HEMOGLOBIN 11.8 g/dL (12.0-16.0); LYMPHOCYTES # (AUTO) 2.8 10^3/uL (1.5-3.5); LYMPHOCYTES % (AUTO) 45.7 %; MEAN CORPUSCULAR HEMOGLOBIN 29.6 pg (27.0-31.0); MEAN CORPUSCULAR HGB CONC 30.8 g/dL (32.0-36.0); MEAN PLATELET VOLUME 10.3 fL (7.9-10.8); MONOCYTES # (AUTO) 0.6 10^3/uL (0.0-1.0); MONOCYTES % (AUTO) 9.8 %; NEUTROPHILS # (AUTO) 2.4 10^3/uL (1.5-6.6); NEUTROPHILS % (AUTO) 38.7 %; PLT - PLATELET COUNT 255 10^3/uL (130-450); RED BLOOD COUNT 3.99 10^6/uL (4.20-5.40); RED CELL DISTRIBUTION WIDTH 13.8 % (12.0-15.0); WHITE BLOOD COUNT 6.1 x10^3/uL (4.8-10.8)
[2019-06-28] MEDS: LACTATED RINGERS 1,000 ML IV SCH (05:59)
[2019-06-28 06:07] LABS: CALCIUM 8.5 mg/dL (8.5-10.3); CREATININE 1.1 mg/dL (0.4-1.0)
[2019-06-28] MEDS ORDERED: POTASSIUM CHLORIDE INJ 40 MEQ in SODIUM CHLORIDE 0.9% 480 ML IV ONE (06:42)
--- NOTE | 2019-06-28 07:38 | PROVIDER PROGRESS NOTE ---
Subjective - Prog Note Date Prog Note Date: 06/28/19 Prog Note Time: 07:37 - Subjective Pt reports feeling: No change Objective - Vital Signs/Intake & Output Vital Signs: Vital Signs x48h Temp Pulse Resp BP Pulse Ox 06/28/19 04:30 36.3 C L 81 20 138/86 H 93 06/28/19 00:21 36.7 C 71 20 118/69 94 Intake & Output: Intake & Output 06/25/19 06/26/19 06/27/19 06/28/19 23:59 23:59 23:59 23:59 Intake Total 1047 2140 2292.333 Balance 1047 2140 2292.333 - Lab Results Fish Bones: 06/28/19 05:38 06/28/19 05:38 Other Labs: Lab Results x24hrs 06/28/19 06/28/19 06/27/19 Range/Units 05:38 05:38 12:05 WBC 6.1 (4.8-10.8) x10^3/uL RBC 3.99 L (4.20-5.40) 10^6/uL Hgb 11.8 L (12.0-16.0) g/dL Hct 38.3 (37.0-47.0) % MCV 96.0 (81.0-99.0) fL MCH 29.6 (27.0-31.0) pg MCHC 30.8 L (32.0-36.0) g/dL RDW 13.8 (12.0-15.0) % Plt Count 255 (130-450) 10^3/uL MPV 10.3 (7.9-10.8) fL Neut # (Auto) 2.4 (1.5-6.6) 10^3/uL Lymph # (Auto) 2.8 (1.5-3.5) 10^3/uL [place] # (Auto) 0.6 (0.0-1.0) 10^3/uL Eos # (Auto) 0.3 (0.0-0.7) 10^3/uL Baso # (Auto) 0.1 (0.0-0.1) 10^3/uL Absolute Nucleated RBC 0.00 x10^3/uL Nucleated RBC % 0.0 /100WBC Sodium 143 141 (135-145) mmol/L Potassium 3.3 L 4.2 (3.5-5.0) mmol/L Chloride 108 102 (101-111) mmol/L Carbon Dioxide 29 31 (21-32) mmol/L Anion Gap 6.0 8.0 (6-13) BUN 13 14 (6-20) mg/dL Creatinine 1.1 H 1.2 H (0.4-1.0) mg/dL Estimated GFR (MDRD) 51 L 46 L (>89) Glucose 102 H 97 (70-100) mg/dL Calcium 8.5 8.9 (8.5-10.3) mg/dL - Other Results/Comments Other Results/Comments: EXAM: Toe is stable clinically Assessment/Plan - Problem List (1) Osteomyelitis Impression: Ready to scheduled surgery PLAN: To OR this AM for partial toe amputation. Qualifiers: Osteomyelitis type: unspecified type Osteomyelitis location: foot Laterality: left Qualified Code(s): M86.9 - Osteomyelitis, unspecified
[2019-06-28] MEDS ORDERED: BUPIVACAINE 0.25% PF 30 ML VIAL ONE (07:45)
--- NOTE | 2019-06-28 07:57 | ANESTHESIA ---
Pre-Anesthesia VS, & Labs - Diagnosis left second toe osteomylitis - Procedure left toe amputation Vital Signs: Temp Pulse Resp BP Pulse Ox 36.3 C L 81 20 138/86 H 93 06/28/19 04:30 06/28/19 04:30 06/28/19 04:30 06/28/19 04:30 06/28/19 04:30 Height 5 ft 6 in Weight (kg) 54.5 kg Body Mass Index 19.3 - NPO >8 hours - Is Patient ?: No - Lab Results Current Lab Results: Laboratory Tests 06/28/19 05:38: Sodium 143, Potassium 3.3 L, Chloride 108, Carbon Dioxide 29, Anion Gap 6.0, BUN 13, Creatinine 1.1 H, Estimated GFR (MDRD) 51 L, Glucose 102 H, Calcium 8.5 06/28/19 05:38: WBC 6.1, RBC 3.99 L, Hgb 11.8 L, Hct 38.3, MCV 96.0, MCH 29.6, MCHC 30.8 L, RDW 13.8, Plt Count 255, MPV 10.3, Neut # (Auto) 2.4, Lymph # (Auto) 2.8, [place] # (Auto) 0.6, Eos # (Auto) 0.3, Baso # (Auto) 0.1, Absolute Nucleated RBC 0.00, Nucleated RBC % 0.0 06/27/19 12:05: Sodium 141, Potassium 4.2, Chloride 102, Carbon Dioxide 31, Anion Gap 8.0, BUN 14, Creatinine 1.2 H, Estimated GFR (MDRD) 46 L, Glucose 97, Calcium 8.9 06/27/19 05:38: Lactic Acid 1.5 06/27/19 05:38: Sodium 140, Potassium 2.7 L, Chloride 103, Carbon Dioxide 29, Anion Gap 8.0, BUN 16, Creatinine 1.1 H, Estimated GFR (MDRD) 51 L, Glucose 153 H, Calcium 8.7 06/27/19 05:38: WBC 6.6, RBC 3.91 L, Hgb 11.8 L, Hct 37.0, MCV 94.6, MCH 30.2, MCHC 31.9 L, RDW 13.7, Plt Count 229, MPV 9.8, Neut # (Auto) 2.8, Lymph # (Auto) 2.8, [place] # (Auto) 0.6, Eos # (Auto) 0.4, Baso # (Auto) 0.1, Absolute Nucleated RBC 0.00, Nucleated RBC % 0.0 06/26/19 19:13: Lactic Acid 1.0 06/26/19 15:01: Potassium 3.4 L 06/26/19 13:21: Whole Blood INR 0.9 06/26/19 12:00: Total Bilirubin 0.4, Direct Bilirubin 0.2, AST 33, ALT 31, Alkaline Phosphatase 73, Total Protein 7.0, Albumin 3.3, Globulin 3.7 06/26/19 12:00: Sodium 141, Potassium 2.7 L, Chloride 96 L, Carbon Dioxide 30, Anion Gap 15.0 H, BUN 17, Creatinine 1.1 H, Estimated GFR (MDRD) 51 L, Glucose 101 H, Calcium 9.2, C-Reactive Protein 4.9 H 06/26/19 12:00: ESR 27 06/26/19 12:00: WBC 9.6, RBC 4.75, Hgb 14.2, Hct 44.2, MCV 93.1, MCH 29.9, MCHC 32.1, RDW 13.7, Plt Count 261, MPV 10.0, Neut # (Auto) 5.9, Lymph # (Auto) 2.5, [place] # (Auto) 0.8, Eos # (Auto) 0.3, Baso # (Auto) 0.0, Absolute Nucleated RBC 0.00, Nucleated RBC % 0.0 Fish Bones: 06/28/19 05:38 06/28/19 05:38 Home Medications and Allergies Home Medications: Ambulatory Orders Ascorbic Acid 500 mg PO DAILY 06/26/19 Calcium Carbonate 500 mg PO DAILY 06/26/19 Cholecalciferol (Vitamin D3) [Vitamin D3] 1,000 unit PO DAILY 06/26/19 Colchicine [Colcrys] 0.6 mg PO BID 06/26/19 Cyanocobalamin (Vitamin B-12) [Vitamin B-12 (500 mcg sublingual)] 500 mcg PO DAILY 06/26/19 Gabapentin [Neurontin] 300 mg PO QPM 06/26/19 Ibuprofen [Motrin] 400 mg PO Q8H PRN 06/26/19 Leflunomide 20 mg PO DAILY 06/26/19 Metoprolol Tartrate 50 mg PO BID 06/26/19 Multivitamin [Theragran] 1 each PO DAILY 06/26/19 Nortriptyline HCl [Pamelor] 50 mg PO QPM 06/26/19 Varenicline Tartrate [Chantix] 1 mg PO BID 06/26/19 predniSONE [Prednisone] 5 - 20 mg PO DAILY PRN 06/26/19 Active Medications Acetaminophen (Tylenol) 650 mg PO Q4HR PRN PRN Reason: Pain 1 to 4 Hydrocodone Bitart/Acetaminophen ([place] 5/325) 1 tab PO Q4HR PRN PRN Reason: Pain 5 to 7 Last Admin: 06/28/19 04:38 Dose: 1 tab Ascorbic Acid (Vitamin C) 500 mg PO DAILY [facility] Last Admin: 06/27/19 08:30 Dose: 500 mg Atorvastatin Calcium (Lipitor) 20 mg PO QPM [facility] Last Admin: 06/27/19 21:13 Dose: 20 mg Calcium Carbonate/Glycine ([place]-500) 500 mg PO DAILY [facility] Last Admin: 06/27/19 08:30 Dose: 500 mg Cholecalciferol (Vitamin D3) 1,000 unit PO DAILY [facility] Last Admin: 06/27/19 08:29 Dose: 1,000 unit Colchicine (Colcrys) 0.6 mg PO DAILY [facility] Cyanocobalamin (Vitamin B-12) 500 mcg PO DAILY [facility] Last Admin: 06/27/19 08:30 Dose: 500 mcg Famotidine (Pepcid) 20 mg PO BID [facility] Last Admin: 06/27/19 21:14 Dose: 20 mg Gabapentin (Neurontin) 300 mg PO QPM [facility] Last Admin: 06/27/19 21:13 Dose: 300 mg Hydromorphone HCl (Dilaudid Inj Carp) 1 mg IVP Q2HR PRN PRN Reason: Pain 8 to 10 Last Admin: 06/26/19 16:40 Dose: 1 mg Vancomycin HCl 1 gm/ Sodium (Chloride) 250 mls @ 167 mls/hr IV Q12H [facility] Last Infusion: 06/28/19 04:00 Dose: Infused Piperacillin Sod/Tazobactam (Sod 3.375 gm/ Sodium Chloride) 100 mls @ 200 mls/hr IV Q6H [facility] Last Infusion: 06/28/19 06:48 Dose: Infused Lactated Ringer's (Lr) 1,000 mls @ 100 mls/hr IV .Q10H [facility] Last Admin: 06/28/19 05:59 Dose: 100 mls/hr Potassium Chloride 40 meq/ (Sodium Chloride) 500 mls @ 125 mls/hr IV ONCE ONE Stop: 06/28/19 10:41 Meloxicam (Mobic) 7.5 mg PO BID [facility] Last Admin: 06/27/19 21:14 Dose: 7.5 mg Metoprolol Tartrate (Lopressor) 50 mg PO BID [facility] Last Admin: 06/27/19 21:14 Dose: 50 mg Multivitamins (Theragran) 1 tab PO DAILY [facility] Last Admin: 06/27/19 08:30 Dose: 1 tab Nortriptyline HCl (Pamelor) 50 mg PO QPM [facility] Last Admin: 06/27/19 21:13 Dose: 50 mg Leflunomide 20 Mg 1 each PO DAILY [facility] Last Admin: 06/27/19 13:03 Dose: Not Given Varenicline 1 Mg 1 each PO BID [facility] Last Admin: 06/27/19 21:16 Dose: Not Given Polyethylene Glycol (Miralax) 17 gm PO DAILY [facility] Last Admin: 06/27/19 08:28 Dose: 17 gm Potassium Chloride (K-Dur) 20 meq PO DAILYWM [facility] Prochlorperazine Edisylate (Compazine Inj) 10 mg IVP Q4HR PRN PRN Reason: Nausea / Vomiting Sodium Chloride (Normal Saline Flush 0.9%) 10 ml IVP PRN PRN PRN Reason: NEEDED PER PROVIDER ORDERS Sodium Chloride (Normal Saline Flush 0.9%) 10 ml IVP 0100,0900,1700 [facility] Last Admin: 06/28/19 02:15 Dose: Not Given Atorvastatin [Lipitor] 20 mg ORAL DAILY 10/27/16 Infliximab-Abda [Renflexis] 500 mg IV .Q8W 10/27/16 Meloxicam 7.5 mg PO BID 10/27/16 Ascorbic Acid 500 mg PO DAILY 06/26/19 Calcium Carbonate 500 mg PO DAILY 06/26/19 Cholecalciferol (Vitamin D3) [Vitamin D3] 1,000 unit PO DAILY 06/26/19 Colchicine [Colcrys] 0.6 mg PO BID 06/26/19 Cyanocobalamin (Vitamin B-12) [Vitamin B-12 (500 mcg sublingual)] 500 mcg PO DAILY 06/26/19 Gabapentin [Neurontin] 300 mg PO QPM 06/26/19 Ibuprofen [Motrin] 400 mg PO Q8H PRN 06/26/19 Leflunomide 20 mg PO DAILY 06/26/19 Metoprolol Tartrate 50 mg PO BID 06/26/19 Multivitamin [Theragran] 1 each PO DAILY 06/26/19 Nortriptyline HCl [Pamelor] 50 mg PO QPM 06/26/19 Varenicline Tartrate [Chantix] 1 mg PO BID 06/26/19 predniSONE [Prednisone] 5 - 20 mg PO DAILY PRN 06/26/19 Allergies/Adverse Reactions: Allergies Allergy/AdvReac Type Severity Reaction Status Date / Time lisinopril Allergy Severe Edema Verified 06/27/19 08:55 Anes History & Medical History - Anesthetic History Anesthesia Complications: reports: No previous complications - Medical History Cardiovascular: reports: Hypertension, High cholesterol Musculoskeletal: reports: Rheumatoid arthritis Smoking Status: Current every day smoker - Surgical History Gynecologic: Breast implants Exam General: Alert Dental: WNL Mallampati classification: II Thyromental Distance: greater than 6 cm Respiratory: Lungs clear Cardiovascular: Regular rate, Normal S1, Normal S2 Plan Anesthesia Type: Other Block (ankle block) Consent for Procedure(s) Verified and Reviewed: Yes Code Status: Attempt Resuscitation ASA classification: 2-Mild systemic disease Is this case an emergency?: Yes
[2019-06-28] MEDS ORDERED: LACTATED RINGERS 800 ML IV ONE (08:09)
[2019-06-28] MEDS ORDERED: ACETAMINOPHEN 325 MG TABLET PO PRN (09:14)
[2019-06-28] MEDS ORDERED: ONDANSETRON 4 MG/2 ML VIAL IVP PRN (09:14)
[2019-06-28] MEDS ORDERED: SODIUM CHLORIDE FLUSH 0.9% 10 ML SYRINGE IVP PRN (09:14)
[2019-06-28] MEDS ORDERED: ACETAMINOPHEN 1,000 MG/100 ML 100 ML IV PRN (09:14)
[2019-06-28] MEDS ORDERED: MORPHINE 2 MG/ML CARPUJECT IVP PRN (09:14)
[2019-06-28] MEDS ORDERED: PROCHLORPERAZINE 10 MG/2 ML VIAL IVP PRN (09:14)
--- NOTE | 2019-06-28 09:19 | OPERATIVE REPORT ---
Operative Report - General Admit Date: 06/26/19 Procedure Date: 06/28/19 Planned Procedure: Partial left 2nd toe amputation Pre-Op Diagnosis: Osteomyelitis of left second toe Procedure Performed: Partial left second toe amputation Post Op Diagnosis: Same - Procedure Note Primary Surgeon: Herber Stacy MD Anesthesia Provider: Guillaume Blackman CRNA Anesthesia Technique: Regional block Pathology: Left second toe tip IV Fluids (mL): 400 Estimated Blood Loss (mL): 50 Complications: None
[2019-06-28] MEDS ORDERED: SODIUM CHLORIDE 0.9% 1,000 ML IV SCH (10:00)
[2019-06-28] MEDS: POTASSIUM CHLORIDE 20 MEQ TABLET PO SCH (10:08)
[2019-06-28] MEDS: CALCIUM CARB (OYSTER SHELL) 500 MG TABLET PO SCH (10:08)
[2019-06-28] MEDS: MULTIVITAMIN TABLET PO SCH (10:08)
[2019-06-28] MEDS: CYANOCOBALAMIN 500 MCG TABLET PO SCH (10:08)
[2019-06-28] MEDS: COLCHICINE 0.6 MG TABLET PO SCH (10:09)
[2019-06-28] MEDS: METOPROLOL TARTRATE 50 MG TABLET PO SCH ×2 (10:09→21:00)
[2019-06-28] MEDS: CHOLECALCIFEROL 1,000 UNIT TABLET PO SCH (10:09)
[2019-06-28] MEDS: ASCORBIC ACID CHEW 500 MG TABLET PO SCH (10:09)
[2019-06-28] MEDS: FAMOTIDINE 20 MG TABLET PO SCH ×2 (10:10→20:59)
[2019-06-28] MEDS: MELOXICAM 7.5 MG TABLET PO SCH ×2 (10:12→20:59)
[2019-06-28] MEDS: VARENICLINE 1 MG PO SCH ×2 (10:12→21:46)
[2019-06-28] MEDS: POLYETHYLENE GLYCOL 3350 17 GM PACKET PO SCH (10:13)
--- NOTE | 2019-06-28 10:51 | PROVIDER PROGRESS NOTE ---
Assessment/Plan - Problem List (1) MSSA (methicillin susceptible Staphylococcus aureus) infection Assessment/Plan: Will de-escalate her broad spectrum Vanco iv and Zosyn iv antibiotics to Ancef 2gm iv q8h. The duration of treatment will depend on Orthop[edic customer consultant, since the focus of infection was removed at surgery today. (2) Osteomyelitis Qualifiers: Osteomyelitis type: unspecified type Osteomyelitis location: foot Laterality: left Qualified Code(s): M86.9 - Osteomyelitis, unspecified Assessment/Plan: Today is POD #0, she had partial L 2nd toe amputation this morning and tolerated the procedure well. Duration of antibiotics from Dr Stacy's recommendations. Start pain meds and ambulation, PT was ordered. (3) Cellulitis and abscess of toe Qualifiers: Laterality: left Qualified Code(s): L03.032 - Cellulitis of left toe; L02.612 - Cutaneous abscess of left foot Assessment/Plan: As in #2 (4) Immunocompromised patient Assessment/Plan: The history of meds for RA, made her immunocompromised and added to the infection. (5) Rheumatoid arthritis Assessment/Plan: No current flare-up. All her pre-hospital meds have been continued. (6) HTN (hypertension) Qualifiers: Hypertension type: essential hypertension Qualified Code(s): I10 - Essential (primary) hypertension Assessment/Plan: Controlled on current med and management. HCTZ stopped however, and I explained to her why, she understands and agrees. W/U for hyperaldosteronism is pending. Will stop the saline that was ordered by Orthopedics post-op, since she is 5L (+) and she has HTN. (7) Hypokalemia Assessment/Plan: Still low serum after several days of replacement of K and stopping her HCTZ. Will replace iv pe-op. Follow BP daily. The W/U for hyperaldosteronism was sent out and is still pending - Current Meds Current Meds: Current Medications Generic Name Dose Route Start Last Admin Trade Name Freq PRN Reason Stop Dose Admin Hydrocodone Bitart/Acetaminophen 1 tab 06/28/19 09:14 06/28/19 10:27 [place] 5/325 PO 1 tab Q4HR PRN Administration PAIN Ascorbic Acid 500 mg 06/27/19 09:00 06/28/19 10:09 Vitamin C PO 500 mg DAILY ONUR Administration Atorvastatin Calcium 20 mg 06/27/19 21:00 06/27/19 21:13 Lipitor PO 20 mg QPM ONUR Administration Calcium Carbonate/Glycine 500 mg 06/27/19 09:00 06/28/19 10:08 Oysco-500 PO 500 mg DAILY ONUR Administration Cholecalciferol 1,000 unit 06/27/19 09:00 06/28/19 10:09 Vitamin D3 PO 1,000 unit DAILY ON[facility] Administration Colchicine 0.6 mg 06/28/19 09:00 06/28/19 10:09 Colcrys PO 0.6 mg DAILY ONUR Administration Cyanocobalamin 500 mcg 06/27/19 09:00 06/28/19 10:08 Vitamin B-12 PO 500 mcg DAILY ON[facility] Administration Famotidine 20 mg 06/26/19 21:00 06/28/19 10:10 Pepcid PO 20 mg BID ONUR Administration Gabapentin 300 mg 06/26/19 21:00 06/27/19 21:13 Neurontin PO 300 mg QPM ON[facility] Administration Hydromorphone HCl 1 mg 06/26/19 12:58 06/26/19 16:40 Dilaudid Inj Carp IVP 1 mg Q2HR PRN Administration Pain 8 to 10 Vancomycin HCl 1 gm/ Sodium 250 mls @ 167 mls/hr 06/27/19 02:00 06/28/19 04:00 Chloride IV Infused Q12H ON[facility] Infusion Piperacillin Sod/Tazobactam 100 mls @ 200 mls/hr 06/26/19 18:00 06/28/19 06:48 Sod 3.375 gm/ Sodium Chloride IV Infused Q6H ON[facility] Infusion Sodium Chloride 1,000 mls @ 100 mls/hr 06/28/19 10:00 06/28/19 10:13 Normal Saline 0.9% IV 100 mls/hr .Q10H [facility] Administration Meloxicam 7.5 mg 06/27/19 10:00 06/28/19 10:12 Mobic PO 7.5 mg BID ONUR Administration Metoprolol Tartrate 50 mg 06/26/19 21:00 06/28/19 10:09 Lopressor PO 50 mg BID ONUR Administration Multivitamins 1 tab 06/27/19 09:00 06/28/19 10:08 Theragran PO 1 tab DAILY ON[facility] Administration Nortriptyline HCl 50 mg 06/26/19 21:00 06/27/19 21:13 Pamelor PO 50 mg QPM ON[facility] Administration Leflunomide 20 Mg 1 each 06/27/19 09:15 06/28/19 10:12 PO Not Given DAILY ON[facility] Varenicline 1 Mg 1 each 06/27/19 21:00 06/28/19 10:12 PO Not Given BID ONUR Polyethylene Glycol 17 gm 06/27/19 09:00 06/28/19 10:13 Miralax PO Not Given DAILY ON[facility] Potassium Chloride 20 meq 06/28/19 08:00 06/28/19 10:08 K-Dur PO 20 meq DAILYWM ON[facility] Administration Sodium Chloride 10 ml 06/26/19 17:00 06/28/19 02:15 Normal Saline Flush 0.9% IVP Not Given 0100,0900,1700 ON[facility] - Lab Result Fish Bone Diagrams: 06/28/19 05:38 06/28/19 05:38 - Additional Planning My Orders: My Active Orders 06/27/19 10:00 Meloxicam [Mobic] 7.5 mg PO BID 06/27/19 21:00 Atorvastatin [Lipitor] 20 mg PO QPM Patient Own Med [Patient Own Medication] 1 each PO BID 06/28/19 08:00 Potassium Chloride [K-Dur] 20 meq PO DAILYWM 06/28/19 09:00 Colchicine [Colcrys] 0.6 mg PO DAILY 06/28/19 13:30 VANCOMYCIN TROUGH [CHEM] Timed 06/29/19 05:00 BMP - BASIC METABOLIC PANEL [CHEM] DAILYLAB CBC - COMP BLD CT W/AUTO DIFF [HEME] DAILYLAB Subjective - Subjective Patient Reports: Resting Comfortably Objective Vital Signs: Vital Signs - 24 hr 06/27/19 06/27/19 06/27/19 11:57 15:54 20:58 Temperature 3.6 C L 36.7 C 36.7 C Heart Rate [ 77 82 Brachial] Heart Rate [ 76 Monitoring electrodes] Respiratory 18 18 18 Rate Blood Pressure Blood Pressure 126/74 129/82 H 134/65 H [Right Brachial artery] O2 Saturation 99 94 95 06/27/19 06/28/19 06/28/19 21:14 00:21 04:30 Temperature 36.7 C 36.3 C L Heart Rate [ 71 81 Brachial] Heart Rate [ Monitoring electrodes] Respiratory 20 20 Rate Blood Pressure 134/65 H Blood Pressure 118/69 138/86 H [Right Brachial artery] O2 Saturation 94 93 06/28/19 06/28/19 06/28/19 09:14 09:23 09:37 Temperature 36.5 C Heart Rate [ 79 77 77 Brachial] Heart Rate [ Monitoring electrodes] Respiratory 17 16 17 Rate Blood Pressure Blood Pressure 141/88 H 139/79 H 136/73 H [Right Brachial artery] O2 Saturation 97 100 98 06/28/19 06/28/19 09:44 10:09 Temperature 36.4 C L Heart Rate [ 78 Brachial] Heart Rate [ Monitoring electrodes] Respiratory 17 Rate Blood Pressure 141/88 H Blood Pressure 135/79 H [Right Brachial artery] O2 Saturation 98 Oxygen O2 Source Room air I&O (Last 24 Hrs): Intake and Output Totals x24h 06/26/19 06/27/19 06/28/19 23:59 23:59 23:59 Intake Total 1047 2140 3228.333 Balance 1047 2140 3228.333 General: Alert, Oriented x3 HEENT: Mucous membr. moist/pink Neck: Supple Neuro: Non Focal Cardiovascular: Regular rate Respiratory: No respiratory distress Abdomen: Soft Extremities: Other (L toes bandaged (post-op). Both arms have 2+edema) - Results Results: Laboratory Results WBC 6.1 x10^3/uL (4.8-10.8) 06/28/19 05:38 RBC 3.99 10^6/uL (4.20-5.40) L 06/28/19 05:38 Hgb 11.8 g/dL (12.0-16.0) L 06/28/19 05:38 Hct 38.3 % (37.0-47.0) 06/28/19 05:38 MCV 96.0 fL (81.0-99.0) 06/28/19 05:38 MCH 29.6 pg (27.0-31.0) 06/28/19 05:38 MCHC 30.8 g/dL (32.0-36.0) L 06/28/19 05:38 RDW 13.8 % (12.0-15.0) 06/28/19 05:38 Plt Count 255 10^3/uL (130-450) 06/28/19 05:38 MPV 10.3 fL (7.9-10.8) 06/28/19 05:38 Neut # (Auto) 2.4 10^3/uL (1.5-6.6) 06/28/19 05:38 Lymph # (Auto) 2.8 10^3/uL (1.5-3.5) 06/28/19 05:38 [place] # (Auto) 0.6 10^3/uL (0.0-1.0) 06/28/19 05:38 Eos # (Auto) 0.3 10^3/uL (0.0-0.7) 06/28/19 05:38 Baso # (Auto) 0.1 10^3/uL (0.0-0.1) 06/28/19 05:38 Absolute Nucleated RBC 0.00 x10^3/uL 06/28/19 05:38 Nucleated RBC % 0.0 /100WBC 06/28/19 05:38 ESR 27 mm/Hr (0-30) 06/26/19 12:00 Whole Blood INR 0.9 (0.8-1.2) 06/26/19 13:21 Sodium 143 mmol/L (135-145) 06/28/19 05:38 Potassium 3.3 mmol/L (3.5-5.0) L 06/28/19 05:38 Chloride 108 mmol/L (101-111) 06/28/19 05:38 Carbon Dioxide 29 mmol/L (21-32) 06/28/19 05:38 Anion Gap 6.0 (6-13) 06/28/19 05:38 BUN 13 mg/dL (6-20) 06/28/19 05:38 Creatinine 1.1 mg/dL (0.4-1.0) H 06/28/19 05:38 Estimated GFR (MDRD) 51 (>89) L 06/28/19 05:38 Glucose 102 mg/dL (70-100) H 06/28/19 05:38 Lactic Acid 1.5 mmol/L (0.5-2.2) 06/27/19 05:38 Calcium 8.5 mg/dL (8.5-10.3) 06/28/19 05:38 Total Bilirubin 0.4 mg/dL (0.2-1.0) 06/26/19 12:00 Direct Bilirubin 0.2 mg/dL (0.1-0.5) 06/26/19 12:00 AST 33 IU/L (10-42) 06/26/19 12:00 ALT 31 IU/L (10-60) 06/26/19 12:00 Alkaline Phosphatase 73 IU/L (42-121) 06/26/19 12:00 C-Reactive Protein 4.9 mg/dL (0-1.0) H 06/26/19 12:00 Total Protein 7.0 g/dL (6.7-8.2) 06/26/19 12:00 Albumin 3.3 g/dL (3.2-5.5) 06/26/19 12:00 Globulin 3.7 g/dL (2.1-4.2) 06/26/19 12:00
--- NOTE | 2019-06-28 10:57 | OPERATIVE REPORT ---
DATE OF SERVICE: 06/28/2019 Physician: Mal Stacy MD PREOPERATIVE DIAGNOSIS: Osteomyelitis of left second toe. POSTOPERATIVE DIAGNOSIS: Osteomyelitis of left second toe. PROCEDURE PERFORMED: Partial left second toe amputation. SURGEON: Mal Stacy MD ANESTHESIA: Regional ankle block. DESCRIPTION OF PROCEDURE: The patient was taken to the operating room on the morning of 06/28/2019, where she was placed under a regional ankle block to get adequate anesthesia for her forefoot. We th en applied a thigh pneumatic tourniquet to the left lower extremity, though this was not inflated dur ing our procedure. After adequate anesthesia was obtained, we then performed a fishmouth-type incisi on centered over the proximal interphalangeal joint of her second toe on the left foot. She was note d to have much less swelling and erythema of her toe than she had on admission. There was no active drainage from any wounds from her toe. After performing our fishmouth incision, we were able to iden tify the distal end of her middle phalanx. A rongeur was used to remove some of the bone from this r egion and this was sent to Microbiology for aerobic, anaerobic, TB and fungal cultures. We then iden tified the articulation of the proximal interphalangeal joint of the second toe. This is where we sh arply transected this joint and performed our partial toe amputation at this level, removing the tip of the toe. This was sent to pathology for identification. We then irrigated the wound out thorough ly with saline. The tissues appear to be viable and there was no gross purulence noted. We then pro ceeded to close the wound using a 4-0 nylon suture with a combination of horizontal mattress and simp le interrupted stitches. We got adequate closure of her wound. We then dressed the wound with fluff s and a Kerlix and an Jorge wrap. The patient was then awoken from anesthesia and taken to the recover y room in satisfactory condition. TOURNIQUET TIME: None. ESTIMATED BLOOD LOSS: Less than 50 mL REPLACEMENT: 400 mL crystalloid. INTRAOPERATIVE COMPLICATIONS: None. PLAN: The patient's antibiotics will be adjusted as needed based on her culture results. She will l ikely be able to be discharged on oral antibiotics with wound dressing changes as needed in the next several days. TD: 06/28/2019 09:26
[2019-06-28] MEDS: HYDROmorphone 1 MG/ML CARPUJECT IVP PRN ×3 (12:44→20:28)
[2019-06-28] MEDS: ceFAZolin 2 GM in SODIUM CHLORIDE 0.9% 100ML 100 ML IV SCH ×2 (14:39→21:00)
[2019-06-28] MEDS ORDERED: SODIUM CHLORIDE FLUSH 0.9% 10 ML SYRINGE IVP SCH (17:00)
[2019-06-28] MEDS: ASPIRIN 325 MG TABLET PO SCH (17:06)
[2019-06-28] MEDS: SODIUM CHLORIDE FLUSH 0.9% 10 ML SYRINGE IVP PRN ×2 (20:29→21:00)
[2019-06-28] MEDS: ATORVASTATIN 10 MG TABLET PO SCH (20:59)
[2019-06-28] MEDS: NORTRIPTYLINE 25 MG CAPSULE PO SCH (20:59)
[2019-06-28] MEDS: GABAPENTIN 300 MG CAPSULE PO SCH (20:59)
[2019-06-28] MEDS ORDERED: SODIUM CHLORIDE 0.9% 100ML 100 ML IV ONE (21:03)
[2019-06-29] MEDS: SODIUM CHLORIDE FLUSH 0.9% 10 ML SYRINGE IVP PRN ×2 (01:39→06:20)
[2019-06-29] MEDS: HYDROmorphone 1 MG/ML CARPUJECT IVP PRN (01:39)
[2019-06-29] MEDS: HYDROcod/ACETAM 5/325 MG TABLET PO PRN ×5 (04:29→21:26)
[2019-06-29 05:06] LABS: BASOPHILS % (AUTO) 0.6 %; EOSINOPHILS # (AUTO) 0.4 10^3/uL (0.0-0.7); EOSINOPHILS % (AUTO) 5.2 %; HGB - HEMOGLOBIN 11.7 g/dL (12.0-16.0); LYMPHOCYTES # (AUTO) 2.7 10^3/uL (1.5-3.5); LYMPHOCYTES % (AUTO) 38.8 %; MEAN CORPUSCULAR HEMOGLOBIN 29.8 pg (27.0-31.0); MEAN CORPUSCULAR HGB CONC 30.8 g/dL (32.0-36.0); MEAN CORPUSCULAR VOLUME 96.7 fL (81.0-99.0); MEAN PLATELET VOLUME 9.9 fL (7.9-10.8); MONOCYTES # (AUTO) 0.6 10^3/uL (0.0-1.0); MONOCYTES % (AUTO) 8.6 %; NEUTROPHILS # (AUTO) 3.3 10^3/uL (1.5-6.6); NEUTROPHILS % (AUTO) 46.7 %; PLT - PLATELET COUNT 249 10^3/uL (130-450); RED BLOOD COUNT 3.93 10^6/uL (4.20-5.40); RED CELL DISTRIBUTION WIDTH 13.8 % (12.0-15.0)
[2019-06-29 05:20] LABS: CALCIUM 8.7 mg/dL (8.5-10.3); CREATININE 1.1 mg/dL (0.4-1.0)
[2019-06-29] MEDS: ceFAZolin 2 GM in SODIUM CHLORIDE 0.9% 100ML 100 ML IV SCH ×3 (05:31→23:03)
--- NOTE | 2019-06-29 07:54 | PROVIDER PROGRESS NOTE ---
Subjective - Prog Note Date Prog Note Date: 06/29/19 Prog Note Time: 07:51 - Subjective Pt reports feeling: Improved (No pain) Objective - Vital Signs/Intake & Output Vital Signs: Vital Signs x48h Temp Pulse Resp BP Pulse Ox 06/29/19 05:10 36.5 C 76 18 143/84 H 97 06/28/19 23:57 36.6 C 74 16 133/80 H 94 Intake & Output: Intake & Output 06/26/19 06/27/19 06/28/19 06/29/19 23:59 23:59 23:59 23:59 Intake Total 1047 2140 5609.333 500 Balance 1047 2140 5609.333 500 - Lab Results Fish Bones: 06/29/19 04:55 06/29/19 04:55 Other Labs: Lab Results x24hrs 06/29/19 06/29/19 Range/Units 04:55 04:55 WBC 7.0 (4.8-10.8) x10^3/uL RBC 3.93 L (4.20-5.40) 10^6/uL Hgb 11.7 L (12.0-16.0) g/dL Hct 38.0 (37.0-47.0) % MCV 96.7 (81.0-99.0) fL MCH 29.8 (27.0-31.0) pg MCHC 30.8 L (32.0-36.0) g/dL RDW 13.8 (12.0-15.0) % Plt Count 249 (130-450) 10^3/uL MPV 9.9 (7.9-10.8) fL Neut # (Auto) 3.3 (1.5-6.6) 10^3/uL Lymph # (Auto) 2.7 (1.5-3.5) 10^3/uL [place] # (Auto) 0.6 (0.0-1.0) 10^3/uL Eos # (Auto) 0.4 (0.0-0.7) 10^3/uL Baso # (Auto) 0.0 (0.0-0.1) 10^3/uL Absolute Nucleated RBC 0.00 x10^3/uL Nucleated RBC % 0.0 /100WBC Sodium 142 (135-145) mmol/L Potassium 4.2 (3.5-5.0) mmol/L Chloride 109 (101-111) mmol/L Carbon Dioxide 25 (21-32) mmol/L Anion Gap 8.0 (6-13) BUN 11 (6-20) mg/dL Creatinine 1.1 H (0.4-1.0) mg/dL Estimated GFR (MDRD) 51 L (>89) Glucose 106 H (70-100) mg/dL Calcium 8.7 (8.5-10.3) mg/dL - Other Results/Comments Other Results/Comments: EXAM: Afebrile. Dressing intact and dry Assessment/Plan - Problem List (1) Osteomyelitis Impression: Satis post op PLAN: Can discharge home after C&S is done and antibiotics adjusted, as needed. Recommend antibiotics x 7 days. Dressing changes as needed. Follow up in clinic in 5-7 days for wound check. Qualifiers: Osteomyelitis type: unspecified type Osteomyelitis location: foot Laterality: left Qualified Code(s): M86.9 - Osteomyelitis, unspecified
[2019-06-29] MEDS: CYANOCOBALAMIN 500 MCG TABLET PO SCH (08:25)
[2019-06-29] MEDS: ASCORBIC ACID CHEW 500 MG TABLET PO SCH (08:27)
[2019-06-29] MEDS: CALCIUM CARB (OYSTER SHELL) 500 MG TABLET PO SCH (08:27)
[2019-06-29] MEDS: FAMOTIDINE 20 MG TABLET PO SCH ×2 (08:27→21:27)
[2019-06-29] MEDS: CHOLECALCIFEROL 1,000 UNIT TABLET PO SCH (08:28)
[2019-06-29] MEDS: POTASSIUM CHLORIDE 20 MEQ TABLET PO SCH (08:28)
[2019-06-29] MEDS: MELOXICAM 7.5 MG TABLET PO SCH ×2 (08:29→21:26)
[2019-06-29] MEDS: METOPROLOL TARTRATE 50 MG TABLET PO SCH ×2 (08:30→21:27)
[2019-06-29] MEDS: MULTIVITAMIN TABLET PO SCH (08:30)
[2019-06-29] MEDS: ASPIRIN 325 MG TABLET PO SCH ×2 (08:30→17:10)
[2019-06-29] MEDS: POLYETHYLENE GLYCOL 3350 17 GM PACKET PO SCH (08:31)
[2019-06-29] MEDS: COLCHICINE 0.6 MG TABLET PO SCH (08:34)
[2019-06-29] MEDS: VARENICLINE 1 MG PO SCH ×2 (09:23→21:28)
[2019-06-29] MEDS: DOCUSATE SODIUM 250 MG CAPSULE PO SCH (09:23)
[2019-06-29] MEDS: SENNA 8.6 MG TABLET PO SCH (09:23)
[2019-06-29] MEDS: SODIUM CHLORIDE FLUSH 0.9% 10 ML SYRINGE IVP SCH ×2 (11:57→17:23)
--- NOTE | 2019-06-29 14:03 | PROVIDER PROGRESS NOTE ---
Assessment/Plan - Problem List (1) MSSA (methicillin susceptible Staphylococcus aureus) infection Assessment/Plan: This was ID'd yesterday, from the wound culture sent from the pus in the wound in the ER. Her Vanc and Zosyn were changed to Ancef iv. (2) Osteomyelitis Qualifiers: Osteomyelitis type: unspecified type Osteomyelitis location: foot Laterality: left Qualified Code(s): M86.9 - Osteomyelitis, unspecified Assessment/Plan: She is POD #1 of a partial toe amputation. She does need iv narcotics on top of scheduled oral narcotics. She did start to ambulate using a special boot. PT is recommending a walker at discharge, which [place] must approve and it must use [employer] (per Case Management). She likely needs another day as inpatient for iv narcotoc pain meds for pain control (last night her pain was 9/10). In addition, the bone culture, which Dr Stacy sent from the OR from 06/28/19, was received but was sent out and no results are available yet (I called our Micro Lab and asked). Dr Stacy wants the culture results from the OR specimen available, to adjust the antibiotics if needed. I informed the patient and she understands and agrees. (3) Cellulitis and abscess of toe Qualifiers: Laterality: left Qualified Code(s): L03.032 - Cellulitis of left toe; L02.612 - Cutaneous abscess of left foot Assessment/Plan: As above in #1 and #2. (4) Immunocompromised patient Assessment/Plan: The history of meds for RA, made her immunocompromised and added to the infection. (5) Rheumatoid arthritis Assessment/Plan: No current flare-up. All her pre-hospital meds have been continued. (6) HTN (hypertension) Qualifiers: Hypertension type: essential hypertension Qualified Code(s): I10 - Essential (primary) hypertension Assessment/Plan: Controlled on current med and management. HCTZ stopped however, because of the marked Hypokalemia and she was needing fluids not diuresis. I explained to her why, she understands and agrees. The saline that was ordered by Orthopedics post-op gave her arm edema, it was stopped last evening, since she became 5L (+) and she has HTN. (7) Hypokalemia Assessment/Plan: At admission, she had a surprisingly very low serum K of 2.8 and was on no meds on her med list to explain that, had no N/V/D. It was still low even after several days of replacement of K. Therefore a W/U for hyperaldosteronism was sent out and is still pending She then remembered that she did not have HCTZ on her med list plus she admitted that she was swallowing her own HCTZ pills, taking ones she had right out of her purse during the first 2 days of this hospitalization. Daily BMP shows hypokalemia has resolved. - Current Meds Current Meds: Current Medications Generic Name Dose Route Start Last Admin Trade Name Freq PRN Reason Stop Dose Admin Hydrocodone Bitart/Acetaminophen 1 tab 06/28/19 09:14 06/29/19 11:57 Dora 5/325 PO 1 tab Q4HR PRN Administration PAIN Ascorbic Acid 500 mg 06/27/19 09:00 06/29/19 08:27 Vitamin C PO 500 mg DAILY ONUR Administration Aspirin 325 mg 06/28/19 17:00 06/29/19 08:30 Raghavendra PO 325 mg BIDWM ONUR Administration Atorvastatin Calcium 20 mg 06/27/19 21:00 06/28/19 20:59 Lipitor PO 20 mg QPM ONUR Administration Calcium Carbonate/Glycine 500 mg 06/27/19 09:00 06/29/19 08:27 Oysco-500 PO 500 mg DAILY ONUR Administration Cholecalciferol 1,000 unit 06/27/19 09:00 06/29/19 08:28 Vitamin D3 PO 1,000 unit DAILY ONUR Administration Colchicine 0.6 mg 06/28/19 09:00 06/29/19 08:34 Colcrys PO 0.6 mg DAILY ONUR Administration Cyanocobalamin 500 mcg 06/27/19 09:00 06/29/19 08:25 Vitamin B-12 PO 500 mcg DAILY ONUR Administration Docusate Sodium 250 - 500 mg 06/29/19 09:00 06/29/19 09:23 Colace 250mg Capsule PO Not Given DAILY ONUR Famotidine 20 mg 06/26/19 21:00 06/29/19 08:27 Pepcid PO 20 mg BID ONUR Administration Gabapentin 300 mg 06/26/19 21:00 06/28/19 20:59 Neurontin PO 300 mg QPM ONUR Administration Hydromorphone HCl 1 mg 06/26/19 12:58 06/29/19 01:39 Dilaudid Inj Carp IVP 1 mg Q2HR PRN Administration Pain 8 to 10 Cefazolin Sodium 2 gm/ Sodium 100 mls @ 200 mls/hr 06/28/19 14:00 06/29/19 06:01 Chloride IV Infused Q8H ONUR Infusion Meloxicam 7.5 mg 06/27/19 10:00 06/29/19 08:29 Mobic PO 7.5 mg BID ONUR Administration Metoprolol Tartrate 50 mg 06/26/19 21:00 06/29/19 08:30 Lopressor PO 50 mg BID ONUR Administration Multivitamins 1 tab 06/27/19 09:00 06/29/19 08:30 Theragran PO 1 tab DAILY ONUR Administration Nortriptyline HCl 50 mg 06/26/19 21:00 06/28/19 20:59 Pamelor PO 50 mg QPM ONUR Administration Leflunomide 20 Mg 1 each 06/27/19 09:15 06/29/19 08:31 PO 1 each DAILY ONUR Administration Varenicline 1 Mg 1 each 06/27/19 21:00 06/29/19 09:23 PO Not Given BID ONUR Polyethylene Glycol 17 gm 06/27/19 09:00 06/29/19 08:31 Miralax PO Not Given DAILY ONUR Potassium Chloride 20 meq 06/28/19 08:00 06/29/19 08:28 K-Dur PO 20 meq DAILYWM ONUR Administration Senna 8.6 - 17.2 mg 06/29/19 09:00 06/29/19 09:23 Senokot PO Not Given DAILY ONUR Sodium Chloride 10 ml 06/26/19 12:58 06/29/19 06:20 Normal Saline Flush 0.9% IVP 10 ml PRN PRN Administration NEEDED PER PROVIDER ORDERS Sodium Chloride 10 ml 06/26/19 17:00 06/29/19 11:57 Normal Saline Flush 0.9% IVP Not Given 0100,0900,1700 ONUR - Lab Result Fish Bone Diagrams: 06/29/19 04:55 06/29/19 04:55 - Additional Planning My Orders: My Active Orders 06/28/19 14:00 ceFAZolin [Ancef] 2 gm Sodium Chloride 0.9% 100Ml [Normal Saline 0.9% 100Ml] 100 ml IV Q8H 06/29/19 09:00 Docusate Sodium 250Mg Capsule [Colace 250Mg Capsule] 250 - 500 mg PO DAILY Senna [Senokot] 8.6 - 17.2 mg PO DAILY Subjective - Subjective Patient Reports: Pain Objective Vital Signs: Vital Signs - 24 hr 06/28/19 06/28/19 06/28/19 15:44 20:00 21:00 Temperature 36.4 C L 36.6 C Heart Rate [ 69 75 Brachial] Heart Rate [ Sitting] Respiratory 18 18 Rate Blood Pressure 140/80 H Blood Pressure 123/71 142/87 H [Right Brachial artery] Blood Pressure [Sitting] O2 Saturation 94 97 06/28/19 06/29/19 06/29/19 23:57 05:10 07:30 Temperature 36.6 C 36.5 C 36.7 C Heart Rate [ 74 76 89 Brachial] Heart Rate [ Sitting] Respiratory 16 18 18 Rate Blood Pressure Blood Pressure 133/80 H 143/84 H 149/85 H [Right Brachial artery] Blood Pressure [Sitting] O2 Saturation 94 97 96 06/29/19 06/29/19 10:43 11:38 Temperature 36.5 C Heart Rate [ 70 Brachial] Heart Rate [ 85 Sitting] Respiratory 18 Rate Blood Pressure Blood Pressure 149/81 H [Right Brachial artery] Blood Pressure 142/75 H [Sitting] O2 Saturation 96 Oxygen O2 Source [Without Activity] Room air O2 Source Room air I&O (Last 24 Hrs): Intake and Output Totals x24h 06/27/19 06/28/19 06/29/19 23:59 23:59 23:59 Intake Total 2140 5609.333 1050 Balance 2140 5609.333 1050 General: Alert, Oriented x3 HEENT: Mucous membr. moist/pink Neck: Supple, No JVD Neuro: Non Focal Cardiovascular: Regular rate Respiratory: No respiratory distress Abdomen: Soft Extremities: Other (1+ L arm edema, on the L foot, the toes are bandaged) - Results Results: Laboratory Results WBC 7.0 x10^3/uL (4.8-10.8) 06/29/19 04:55 RBC 3.93 10^6/uL (4.20-5.40) L 06/29/19 04:55 Hgb 11.7 g/dL (12.0-16.0) L 06/29/19 04:55 Hct 38.0 % (37.0-47.0) 06/29/19 04:55 MCV 96.7 fL (81.0-99.0) 06/29/19 04:55 MCH 29.8 pg (27.0-31.0) 06/29/19 04:55 MCHC 30.8 g/dL (32.0-36.0) L 06/29/19 04:55 RDW 13.8 % (12.0-15.0) 06/29/19 04:55 Plt Count 249 10^3/uL (130-450) 06/29/19 04:55 MPV 9.9 fL (7.9-10.8) 06/29/19 04:55 Neut # (Auto) 3.3 10^3/uL (1.5-6.6) 06/29/19 04:55 Lymph # (Auto) 2.7 10^3/uL (1.5-3.5) 06/29/19 04:55 [place] # (Auto) 0.6 10^3/uL (0.0-1.0) 06/29/19 04:55 Eos # (Auto) 0.4 10^3/uL (0.0-0.7) 06/29/19 04:55 Baso # (Auto) 0.0 10^3/uL (0.0-0.1) 06/29/19 04:55 Absolute Nucleated RBC 0.00 x10^3/uL 06/29/19 04:55 Nucleated RBC % 0.0 /100WBC 06/29/19 04:55 ESR 27 mm/Hr (0-30) 06/26/19 12:00 Whole Blood INR 0.9 (0.8-1.2) 06/26/19 13:21 Sodium 142 mmol/L (135-145) 06/29/19 04:55 Potassium 4.2 mmol/L (3.5-5.0) 06/29/19 04:55 Chloride 109 mmol/L (101-111) 06/29/19 04:55 Carbon Dioxide 25 mmol/L (21-32) 06/29/19 04:55 Anion Gap 8.0 (6-13) 06/29/19 04:55 BUN 11 mg/dL (6-20) 06/29/19 04:55 Creatinine 1.1 mg/dL (0.4-1.0) H 06/29/19 04:55 Estimated GFR (MDRD) 51 (>89) L 06/29/19 04:55 Glucose 106 mg/dL (70-100) H 06/29/19 04:55 Lactic Acid 1.5 mmol/L (0.5-2.2) 06/27/19 05:38 Calcium 8.7 mg/dL (8.5-10.3) 06/29/19 04:55 Total Bilirubin 0.4 mg/dL (0.2-1.0) 06/26/19 12:00 Direct Bilirubin 0.2 mg/dL (0.1-0.5) 06/26/19 12:00 AST 33 IU/L (10-42) 06/26/19 12:00 ALT 31 IU/L (10-60) 06/26/19 12:00 Alkaline Phosphatase 73 IU/L (42-121) 06/26/19 12:00 C-Reactive Protein 4.9 mg/dL (0-1.0) H 06/26/19 12:00 Total Protein 7.0 g/dL (6.7-8.2) 06/26/19 12:00 Albumin 3.3 g/dL (3.2-5.5) 06/26/19 12:00 Globulin 3.7 g/dL (2.1-4.2) 06/26/19 12:00
[2019-06-29] MEDS ORDERED: SODIUM CHLORIDE 0.9% 100ML 100 ML IV ONE (17:12)
[2019-06-29] MEDS: ATORVASTATIN 10 MG TABLET PO SCH (21:25)
[2019-06-29] MEDS: GABAPENTIN 300 MG CAPSULE PO SCH (21:27)
[2019-06-29] MEDS: NORTRIPTYLINE 25 MG CAPSULE PO SCH (21:28)
[2019-06-30] MEDS: HYDROcod/ACETAM 5/325 MG TABLET PO PRN ×4 (01:32→16:42)
[2019-06-30] MEDS: SODIUM CHLORIDE FLUSH 0.9% 10 ML SYRINGE IVP SCH ×3 (01:35→14:42)
[2019-06-30] MEDS: SODIUM CHLORIDE FLUSH 0.9% 10 ML SYRINGE IVP PRN (06:21)
[2019-06-30] MEDS: ceFAZolin 2 GM in SODIUM CHLORIDE 0.9% 100ML 100 ML IV SCH ×2 (06:21→14:43)
[2019-06-30] MEDS: CHOLECALCIFEROL 1,000 UNIT TABLET PO SCH (08:33)
[2019-06-30] MEDS: CYANOCOBALAMIN 500 MCG TABLET PO SCH (08:33)
[2019-06-30] MEDS: MULTIVITAMIN TABLET PO SCH (08:33)
[2019-06-30] MEDS: ASPIRIN 325 MG TABLET PO SCH (08:33)
[2019-06-30] MEDS: POTASSIUM CHLORIDE 20 MEQ TABLET PO SCH (08:33)
[2019-06-30] MEDS: COLCHICINE 0.6 MG TABLET PO SCH (08:34)
[2019-06-30] MEDS: FAMOTIDINE 20 MG TABLET PO SCH (08:34)
[2019-06-30] MEDS: ASCORBIC ACID CHEW 500 MG TABLET PO SCH (08:34)
[2019-06-30] MEDS: METOPROLOL TARTRATE 50 MG TABLET PO SCH (08:34)
[2019-06-30] MEDS: CALCIUM CARB (OYSTER SHELL) 500 MG TABLET PO SCH (08:34)
[2019-06-30] MEDS: MELOXICAM 7.5 MG TABLET PO SCH (08:35)
[2019-06-30] MEDS: DOCUSATE SODIUM 250 MG CAPSULE PO SCH (08:35)
[2019-06-30] MEDS: VARENICLINE 1 MG PO SCH (08:35)
[2019-06-30] MEDS: POLYETHYLENE GLYCOL 3350 17 GM PACKET PO SCH (08:36)
[2019-06-30] MEDS: SENNA 8.6 MG TABLET PO SCH (08:36)
--- NOTE | 2019-06-30 15:23 | PROVIDER PROGRESS NOTE ---
Subjective - Prog Note Date Prog Note Date: 06/30/19 Prog Note Time: 15:36 - Subjective Pt reports feeling: No change Subjective: boyfriend at the bedside. very involved in care and gets annoyed if we address plan to her and not to him. wants to know what to do with dressing changes. otherwise pain is controlled, no cp, no sob. Current Medications - Current Medications Current Medications: Active Medications Acetaminophen (Tylenol) 650 - 975 mg PO Q4HR PRN PRN Reason: PAIN Hydrocodone Bitart/Acetaminophen ([place] 5/325) 1 tab PO Q4HR PRN PRN Reason: PAIN Last Admin: 06/30/19 12:29 Dose: 1 tab Ascorbic Acid (Vitamin C) 500 mg PO DAILY PENDING SALE TO [facility] Last Admin: 06/30/19 08:34 Dose: 500 mg Aspirin (Raghavendra) 325 mg PO BIDWM PENDING SALE TO [facility] Last Admin: 06/30/19 08:33 Dose: 325 mg Atorvastatin Calcium (Lipitor) 20 mg PO QPM PENDING SALE TO [facility] Last Admin: 06/29/19 21:25 Dose: 20 mg Calcium Carbonate/Glycine (Oysco-500) 500 mg PO DAILY PENDING SALE TO [facility] Last Admin: 06/30/19 08:34 Dose: 500 mg Cholecalciferol (Vitamin D3) 1,000 unit PO DAILY PENDING SALE TO [facility] Last Admin: 06/30/19 08:33 Dose: 1,000 unit Colchicine (Colcrys) 0.6 mg PO DAILY PENDING SALE TO [facility] Last Admin: 06/30/19 08:34 Dose: 0.6 mg Cyanocobalamin (Vitamin B-12) 500 mcg PO DAILY PENDING SALE TO [facility] Last Admin: 06/30/19 08:33 Dose: 500 mcg Docusate Sodium (Colace 250mg Capsule) 250 - 500 mg PO DAILY PENDING SALE TO [facility] Last Admin: 06/30/19 08:35 Dose: Not Given Famotidine (Pepcid) 20 mg PO BID PENDING SALE TO [facility] Last Admin: 06/30/19 08:34 Dose: 20 mg Gabapentin (Neurontin) 300 mg PO QPM PENDING SALE TO [facility] Last Admin: 06/29/19 21:27 Dose: 300 mg Hydromorphone HCl (Dilaudid Inj Carp) 1 mg IVP Q2HR PRN PRN Reason: Pain 8 to 10 Last Admin: 06/29/19 01:39 Dose: 1 mg Acetaminophen (Ofirmev) 100 mls @ 400 mls/hr IV Q6HR PRN PRN Reason: PAIN Cefazolin Sodium 2 gm/ Sodium (Chloride) 100 mls @ 200 mls/hr IV Q8H PENDING SALE TO [facility] Last Admin: 06/30/19 14:43 Dose: 200 mls/hr Meloxicam (Mobic) 7.5 mg PO BID PENDING SALE TO [facility] Last Admin: 06/30/19 08:35 Dose: 7.5 mg Metoprolol Tartrate (Lopressor) 50 mg PO BID PENDING SALE TO [facility] Last Admin: 06/30/19 08:34 Dose: 50 mg Morphine Sulfate (Morphine (Carpuject)) 2 mg IVP Q2HR PRN PRN Reason: PAIN Multivitamins (Theragran) 1 tab PO DAILY PENDING SALE TO [facility] Last Admin: 06/30/19 08:33 Dose: 1 tab Nortriptyline HCl (Pamelor) 50 mg PO QPM PENDING SALE TO [facility] Last Admin: 06/29/19 21:28 Dose: 50 mg Ondansetron HCl (Zofran Inj) 4 mg IVP Q6HR PRN PRN Reason: Nausea / Vomiting Leflunomide 20 Mg 1 each PO DAILY PENDING SALE TO [facility] Last Admin: 06/30/19 08:35 Dose: Not Given Varenicline 1 Mg 1 each PO BID PENDING SALE TO [facility] Last Admin: 06/30/19 08:35 Dose: Not Given Polyethylene Glycol (Miralax) 17 gm PO DAILY PENDING SALE TO [facility] Last Admin: 06/30/19 08:36 Dose: Not Given Potassium Chloride (K-Dur) 20 meq PO DAILYWM PENDING SALE TO [facility] Last Admin: 06/30/19 08:33 Dose: 20 meq Prochlorperazine Edisylate (Compazine Inj) 10 mg IVP Q4HR PRN PRN Reason: Nausea / Vomiting Senna (Senokot) 8.6 - 17.2 mg PO DAILY PENDING SALE TO [facility] Last Admin: 06/30/19 08:36 Dose: Not Given Sodium Chloride (Normal Saline Flush 0.9%) 10 ml IVP PRN PRN PRN Reason: NEEDED PER PROVIDER ORDERS Last Admin: 06/30/19 06:21 Dose: 10 ml Sodium Chloride (Normal Saline Flush 0.9%) 10 ml IVP 0100,0900,1700 PENDING SALE TO [facility] Last Admin: 06/30/19 14:42 Dose: 10 ml Atorvastatin [Lipitor] 20 mg ORAL DAILY 10/27/16 Infliximab-Abda [Renflexis] 500 mg IV .Q8W 10/27/16 Meloxicam 7.5 mg PO BID 10/27/16 Ascorbic Acid 500 mg PO DAILY 06/26/19 Calcium Carbonate 500 mg PO DAILY 06/26/19 Cholecalciferol (Vitamin D3) [Vitamin D3] 1,000 unit PO DAILY 06/26/19 Colchicine [Colcrys] 0.6 mg PO BID 06/26/19 Cyanocobalamin (Vitamin B-12) [Vitamin B-12 (500 mcg sublingual)] 500 mcg PO DAILY 06/26/19 Gabapentin [Neurontin] 300 mg PO QPM 06/26/19 Ibuprofen [Motrin] 400 mg PO Q8H PRN 06/26/19 Leflunomide 20 mg PO DAILY 06/26/19 Metoprolol Tartrate 50 mg PO BID 06/26/19 Multivitamin [Theragran] 1 each PO DAILY 06/26/19 Nortriptyline HCl [Pamelor] 50 mg PO QPM 06/26/19 Varenicline Tartrate [Chantix] 1 mg PO BID 06/26/19 predniSONE [Prednisone] 5 - 20 mg PO DAILY PRN 06/26/19 Objective - Vital Signs/Intake & Output Reviewed Vital Signs: Yes Vital Signs: Vital Signs x48h Temp Pulse Resp BP Pulse Ox 06/30/19 12:47 36.6 C 71 16 143/75 H 99 06/30/19 08:09 36.7 C 83 16 154/84 H 96 Intake & Output: Intake & Output 06/27/19 06/28/19 06/29/19 06/30/19 23:59 23:59 23:59 23:59 Intake Total 2140 5609.333 2300 970 Balance 2140 5609.333 2300 970 - Objective General Appearance: positive: No acute distress, Alert Eyes Bilateral: positive: PERRL, EOMI ENT: positive: Pharynx nml Neck: positive: No JVD Respiratory: positive: Chest non-tender. negative: Wheezes, Rales, Rhonchi Cardiovascular: positive: Regular rate & rhythm. negative: Systolic murmur, Gallop/S4, Friction rub Abdomen: positive: Non-tender, No organomegaly, Nml bowel sounds, No distention Skin: positive: Warm, Dry Extremities: positive: Full ROM, No pedal edema, Other (left foot is wrapped in dressing and DIA) Neurologic/Psychiatric: positive: Oriented x3, CN's nml (2-12), Motor nml, Sensation nml - Lab Results Fish Bones: 06/29/19 04:55 06/29/19 04:55 ABX Reporting Has patient been on IV antibiotics over the past 48 hours?: Yes Assessment/Plan - Problem List (1) MSSA (methicillin susceptible Staphylococcus aureus) infection Impression: This was ID'd yesterday, from the wound culture sent from the pus in the wound in the ER. Her Vanc and Zosyn were changed to Ancef iv. Day #3 of Ancef. (2) Osteomyelitis Qualifiers: Osteomyelitis type: unspecified type Osteomyelitis location: foot Laterality: left Qualified Code(s): M86.9 - Osteomyelitis, unspecified Assessment/Plan: She is POD #2 of a partial toe amputation. She does need iv narcotics on top of scheduled oral narcotics. She did start to ambulate using a special boot. PT is recommending a walker at discharge, which [place] must approve and it must use [employer] (per Case Management). She needed another day as inpatient for iv narcotoc pain meds for pain control (06/28 her pain was 9/10). In addition, the bone culture, which Dr Stacy sent from the OR from 06/28/19, was received but was sent out and no results were available yet (I called our Micro Lab and asked). Dr Stacy wants the culture results from the OR specimen available, to adjust the antibiotics if needed. Today it is Staph Aureus and sensitive to methicillin. She is on appropriate meds. To go home today. (3) Cellulitis and abscess of toe Qualifiers: Laterality: left Qualified Code(s): L03.032 - Cellulitis of left toe; L02.612 - Cutaneous abscess of left foot Assessment/Plan: As above in #1 and #2. (4) Immunocompromised patient Assessment/Plan: The history of meds for RA, made her immunocompromised and added to the infection. (5) Rheumatoid arthritis Assessment/Plan: No current flare-up. All her pre-hospital meds have been continued. (6) HTN (hypertension) Qualifiers: Hypertension type: essential hypertension Qualified Code(s): I10 - Essential (primary) hypertension Assessment/Plan: Controlled on current med and management. HCTZ stopped however, because of the marked Hypokalemia and she was needing fluids not diuresis. I explained to her why, she understands and agrees. The saline that was ordered by Orthopedics post-op gave her arm edema, it was stopped last evening, since she became 5L (+) and she has HTN. (7) Hypokalemia Assessment/Plan: At admission, she had a surprisingly very low serum K of 2.8 and was on no meds on her med list to explain that, had no N/V/D. It was still low even after several days of replacement of K. Therefore a W/U for hyperaldosteronism was sent out and is still pending She then remembered that she did not have HCTZ on her med list plus she admitted that she was swallowing her own HCTZ pills, taking ones she had right out of her purse during the first 2 days of this hospitalization. Daily BMP shows hypokalemia has resolved.
--- NOTE | 2019-06-30 16:52 | Discharge Plan ---
Discharge Plan Problem Reviewed?: Yes Disposition: Home, Self Care Condition: Stable Prescriptions: Cephalexin [Keflex] 500 mg PO QID #16 capsule HYDROcod/ACETAM 5/325 [[place] 5/325] 1 tab PO Q6H PRN #40 tablet PRN Reason: Pain Potassium Chloride 20 meq PO DAILY #7 tablet.er Diet: Regular Activity Restrictions: Activity as Tolerated Shower Restrictions: Yes (keep foot clean and dry) Driving Restrictions: Yes (no driving until cleared by Dr. Stacy) Assistance Devices: Crutches Weight Bearing: Full Weight Health Concerns: Your visiting from [place], have a history of rheumatoid arthritis, who developed toe swelling from trauma from your shoes. Over 5 days,pain and swelling over the left 2nd toe got much worse. On the day of admission you came in because the toe had broken open and there was a lot of drainage of pus. You were found to have osteomyelitis of that toe. While here, he also had a low potassium requiring several doses of potassium supplementation. You usually have a normal potassium level. Plan of Treatment: You were placed on IV antibiotics, and have grown out staph aureus on culture of the wound and the bone. It is an bacteria that is sensitive to a normal course of antibiotics. You underwent an amputation of the infected toe. Care Goals: 1. Keep the foot wrapped with a bandage and Jorge wrap that Dr. Stacy has placed on it. Keep the foot clean and dry. You can take a shower but need to wrap the foot and plastic and keep it dry. 2. See Dr. Stacy on July 06. He will redo the dressing then. He did your dressing before leaving today. 3. Pain is controlled with Neola. You have been taking that while in hospital. He will go home on 1 tablet every 6 hours, #40. 4. Dr. Stacy would like you to finish a total of 7 days of antibiotic therapy. You have already completed 3 days of intravenous Ancef. I am now changing you to the pill form of Ancef which is called Keflex. You will take 1 tablet 4 times a day for 16 more doses. 5. You will stop smoking since it interferes with wound healing 6. Please take over the counter probiotic twice a day. 7. Take a potassium tablet daily. Stop it after 5 or 6 days. Have your potassium level checked on July 06. There will be an order waiting for you at the lab here at [facility]. Call your primary care provider, Dr. Zaman, to discuss the results and to see if you need to continue potassium replacement. Assessment: Patient expresses understanding of goals, and will follow through. No Smoking: If you smoke, Please STOP! Call for help. Follow-up with: Mal Stacy MD [Provider Admit Priv/Credential] -
[2019-06-30 17:16] VITALS: BP 163/88
--- NOTE | 2019-07-03 11:08 | DISCHARGE SUMMARY ---
Physician: Meghna Rain MD DATE OF ADMISSION: 06/26/2019 DATE OF DISCHARGE: 06/30/2019 PRIMARY CARE PROVIDER: Dr. Jane Zaman, , out of [facility] in [facility]. DISCHARGE DIAGNOSES 1. Methicillin-sensitive Staphylococcus aureus infection. 2. Osteomyelitis of second toe. 3. Cellulitis, second toe, left foot. 4. Immunocompromised patient. 5. Rheumatoid arthritis. 6. Essential hypertension. 7. Hypokalemia. PRINCIPAL PROCEDURES 1. Foot x-ray with findings consistent of osteomyelitis involving the second toe, left foot. 2. Chest x-ray: No lung consolidations or acute cardiopulmonary process identified. 3. Amputation second toe on 06/29/2019. Pathology report shows dermal abscess, underlying osteomyel itis, negative for granulomata and/or neoplasm. 4. Wound culture growing Staphylococcus aureus that is MSSA. 5. Bone culture showing fungal preliminary negative, and aerobic bacteria with heavy growth of Staph aureus that is sensitive. HOSPITAL COURSE: She is a 58-year-old white female who is immunocompromised from treatment of rheuma toid arthritis with daily leflunomide. She is also on prednisone as needed. 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 She comes up to [facility] on a regular b asis to visit her significant other and travels between [place], [place] and here. Her primary c are provider is Dr. Jane Zaman. 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 Her phone number to [phone]. She developed swelling of her left second toe after wearing a certain shoe. The initial swelling and discomfort got better, but then it started getting worse again and she started soaking it in [place] s alts. This morning, the toe skin spontaneously opened up and started to drain purulent material and she came to the emergency room. Workup in the emergency room by Dr. Sandeep Duong showed her to be afebrile at 36.6 with normal blood pressure, pulse, respiration and oxygenation. Exam had swelling a nd erythema of the left second toe. A small amount of purulent drainage from the tip of the toe. Mi ld swelling and erythema to the dorsum of the foot as well. Brisk capillary refill. Neurovascularly appeared intact. Her white cell count was 9.6. Unfortunately, the left plain film showed osteomyel itis involving the distal tip of the left second toe. Consult with Dr. Mal Stacy, orthopedic surgery. She was placed on empiric antibiotic therapy. She w as continued on her outpatient medications. Empiric antibiotic therapy initially consisted of Zosyn and vancomycin. Culture came back from the wound as methicillin-sensitive Staphylococcus and as such, she was switche d to Ancef. Orthopedics took her to the OR where he amputated the distal tip of that toe on 06/29. That culture also showed methicillin-sensitive Staph. Patient remained afebrile throughout her stay. Pain was controlled with oral opiates. Blood pressur e was mildly elevated and her systolic was 140s to 160s. In the outpatient setting, she is not on an y antihypertensives except for metoprolol 50 mg b.i.d. Her dressing change was done on the day of discharge. Sutures are still in place on the distal tip o f the second toe. The skin is healed, closed, there is no warmth, no redness, no heat. Dr. Stacy repl aced the bandage and has asked her to keep the wound clean and dry and he will see her again on , 07/06/2019. She will change the dressing at that time. She was mildly hypokalemic during her and required supplementation. She has been sent home on extra potassium. We would like her to get her potassium checked on Saturday the as well. Her hypokalemia was attributed to possible use of hydrochlorothiazide. Even though we did not have her on it all the time, she admitted to swallowing her own pills that she had in her purse. She is asked to see Dr. Stacy on Saturday the . She is asked not to drive until she sees him. Keep the wound clean and dry. DISCHARGE PHYSICAL EXAMINATION VITAL SIGNS: Temperature of 36.8, pulse of 82, blood pressure 163/88, respirations 20, 98% on room a ir. GENERAL: She is an alert, oriented, middle-aged female. We have asked her not to smoke. NECK: Supple with shotty adenopathy. LUNGS: Clear to auscultation and percussion without wheezing. HEART: PMI is normally placed with a regular rate and rhythm. No murmur. ABDOMEN: Benign. Foot exam is as above. Greater than 30 minutes was spent coordinating discharge. TD: 07/03/2019 10:06
== END 2019-06-30 17:20 | disposition home or self-care (01) | DRG 505 ==
LOC: ED 11:16 → MS2 12:58
PROVIDERS: ADMIT Internal Medicine; ATTEND Specialist
PROC: 0Y6S0Z3 Detachment at Left 2nd Toe, Low, Open Approach (ICD-10-PCS; principal; 2019-06-26)
DX: M86.9 Osteomyelitis, unspecified (principal); M89.772 Major osseous defect, left ankle and foot; L03.032 Cellulitis of left toe; M06.9 Rheumatoid arthritis, unspecified; B95.61 Methicillin susceptible Staphylococcus aureus infection as the cause of diseases classified elsewhere; I10 Essential (primary) hypertension; E87.6 Hypokalemia; F17.200 Nicotine dependence, unspecified, uncomplicated; Z79.899 Other long term (current) drug therapy; Z79.52 Long term (current) use of systemic steroids
CPT/HCPCS: 36415; 71045; 73630; 80048; 80076; 82088; 83605; 84132; 84244; 85025; 85610; 85651; 86140; 87070; 87077; 87181; 87205; 93005; 97161; 97165; 99284; 99285; A9270; J1170; J3370; J7120; 80202